=== PATIENT | male | born 1955 | race Caucasian/White ===

== ENCOUNTER 2021-09-06 08:15 | Outpatient (RCR) | payer OTHER, SELFPAY ==
[2021-08-30 08:21] VITALS: BP 100/68; PULSE 101; RESP 18; TEMP 35.9; BMI 33.9
--- NOTE | 2021-08-30 10:09 | PCM.WC.HP ---
History of Present Illness Date of Service: 08/30/21 Chief Complaint: Follow-up on surgical wound lower abdomen Follow-up on surgical wound lower Midabdomen History of Wound: 66-year-old white male, had a colonoscopy done in late summer was found to have low pulse ox while performing the procedure. 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 Patient was sent to [facility] and basically told there was nothing they could do for him and that he was pretty well going to . His daughters were upset and wanted to get a second opinion and call the [facility]. Patient was transferred down to [facility] and they perform surgery on him and remove the sarcoma in its totality and basically the patient does not need chemo. 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 He was admitted for with chest tubes and had been there for quite a while he still has this nonhealing wound in the lower abdomen that he states was a drain from his original surgery. He then went to [place] [facility] and they only want to see him every 1 to 3 months and told him just to pack it with new gauze. They did not like that so they decided to change facilities and that is how he was sent to us. 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 ROLLING MACHINE OPERATOR-C) Pleural effusion, chylous Renal insufficiency S/p nephrectomy Sarcoma Home Medications acetaminophen [Tylenol Ex Str Arthritis Pain] 1,000 mg PO BID 08/30/21 [History Last Taken Unknown] amlodipine 5 mg PO DAILY 08/30/21 [History Last Taken Unknown] apixaban [Eliquis] 5 mg PO BID 08/30/21 [History Last Taken Unknown] cholecalciferol (vitamin D3) [Vitamin D3] 50 mcg PO DAILY 08/30/21 [History Last Taken Unknown] [id number] [Multivitamin 50 Plus] 1 tab PO DAILY 08/30/21 [History Last Taken Unknown] prednisone 5 mg PO BID 08/30/21 [History Last Taken Unknown] tamsulosin 0.4 mg PO DAILY 08/30/21 [History Last Taken Unknown] Allergy/AdvReac Type Severity Reaction Status Date / Time No Known Allergies Allergy Verified 08/30/21 08:35 Social History Smoking Status: Never smoker ROS Integumentary Integumentary: Reports wounds and other Details: Nonhealing surgical wound from previous drain Vital Signs Vital Signs Vital Signs: 08/30/21 08:21 Temperature 96.7 F L Temperature Source Temporal Pulse Rate 101 H Respiratory Rate 18 Blood Pressure 100/68 Blood Pressure Mean 78 Blood Pressure Source Monitor Blood Pressure Position Sitting Blood Pressure Location Left Arm Oxygen Delivery Method Room Air Weight Weight: 223 lb Body Mass Index (BMI) 33.9 Physical Exam Const oriented x3 General Appearance: cooperative Exam Limitations: no limitations HEENT normocephalic Head and Scalp: normal to inspection Face and Sinus: normal facial exam Nose: external nose normal General Ear: hearing grossly impaired External Ear: external ears normal Mouth: oral and palatal mucosa normal Eyes PERRL General Eye: normal appearance of both eyes Neck full ROM General: normal visual inspection Resp normal respiratory effort Effort and Inspection: able to speak in complete sentences Auscultation: clear to auscultation bilaterally Cardio regular rate and regular rhythm Palpation: normal PMI Rate: regular rate Rhythm: regular rhythm GI Auscultation: normoactive bowel sounds Palpation: soft and no hepatosplenomegaly external exam normal Back/Spine Cervical Spine: cervical ROM normal Thoracic Spine / Upper Back: normal to inspection Lumbar Spine / Lower Back: normal to inspection Extremity normal to inspection General Extremity: normal exam except as noted Skin no rashes or lesions noted Wounds: wounds noted Wound Narrative: Small hole base of healed suture line from a previous drain that goes a couple inches into abdomen. Neuro oriented x3 Psych Appearance: grossly normal Speech: normal speech Thought Content: normal thought content Judgement: judgement good Debridement Note Debridement Note Wound debrided: Surgical wound mid abdomen Anesthesia Used: 5% Lidocaine Gel Depth: Down to and including healthy tissue Percentage of wound debrided: 100 Instrument Used: 3mm curette Severity: Fat Layer Exposed Amount of bleeding with debridement: Mild Bleeding Controlled with: Compression and gauze Post-Debridement Measurements and Additional Note: Post-Debridement Measurements/Treatment WC - Nurse 1 - General Ulcer Assessment Start: 08/30/21 08:21 Freq: Status: Active Protocol: DELORIS Activity Type Activity Date Activity User E-Sign Co-Sign Detail Recorded Client Recorded Date Recorded By Document 08/30/21 08:21 [facility] [id number] 08/30/21 08:30 [facility] 08/30/21 08:21 WC - Today's Visit Information Type of service Initial Visit Arrival Mode Ambulatory Transfer Assistance None Accompanied by Patient Identification Verified (Name & Yes ) Height and Weight Height 5 ft 8 in Weight 223 lb Weight in Pounds 223.0 lbs Weight Measurement Method Estimated by Patient Body Mass Index (BMI) 33.9 BMI Classification Obese BSA - Bruce 2.14 Vital Signs Temperature (97.8 F-99.1 F) 96.7 F L Temperature Source Temporal Pulse Rate (60-100) 101 H Pulse Location Monitor Respiratory Rate (12-18) 18 Respiratory rate source Observation Oxygen Delivery Method Room Air Blood Pressure (90/60-120/80) 100/68 Blood Pressure Mean 78 Source Monitor Position Sitting Blood Pressure Location Left Arm History Since Last Visit- (Skip if this is Patient's initial visit) Left Footwear Regular Shoe Right Footwear Regular Shoe Pain Scale: 0-10 Numeric Is Patient Pain Free? Yes Communication Assessment Preferred language Macedonian Release And Technical Records Clerk Required No Able to Read Yes Able to Write Yes Communication Tools None Right Hearing Abillity Normal Left Hearing Abillity Normal Visual Assistive Devices Glasses Teaching Assessment Preferences Verbal,Written, Audio/Visual, Demonstration Barriers to Learning None Readiness To Learn Excellent Willingness to Engage in Self Management High Activies Readiness to Engage in Self Management High Activities Anxiety Level Calm Cooperation Cooperative Perception Coherent Interest in Health Problem Asks Questions Education Importance Acknowledges Need Does Patient Smoke tobacco or other No substances Smoking Status Never smoker Is Patient Diabetic No Functional Assessment Recent Decline in Ability to Perform Denies Any Declines 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 Cultural/Hoahaoism Needs that may affect No Treatment Plan Teaching: Wound Center *Welcome to the Wound Center -Person Taught Patient, Significant Other -Teaching Method Discussion -Response to teaching Verbalize understanding Welcome to the Wound Care Center Macedonian - Nurse 1 - General Ulcer Measurement Start: 08/30/21 08:21 Freq: Status: Active Protocol: Activity Type Activity Date Activity User E-Sign Co-Sign Detail Recorded Client Recorded Date Recorded By Document 08/30/21 08:21 [facility] [id number] 08/30/21 08:30 [facility] 08/30/21 08:21 Wound Center Nurse 1 #1- LOWER ABDOMEN MIDLINE -Combined with other wound No -Current Size (cm) - Length 0.3 -Current Size (cm) - Width 0.2 -Current Size (cm) - Depth 3.3 -Total Square Cm 0.06 -Date of Last Picture (Recall this 08/30/21 field) -Photo Taken Yes -Epithelialization None Present -Tunneling No -Undermining/Tunneling No -Circular Undermining No -Exudate Amt Large -Exudate Type Serosanguineous -Wound Margin Distinct, Outline Attached -Granulation Amt Large (67-100%) -Granulation Quality Red -Slough/Fibrin No -Necrosis Amt None Present (0 %) -Texture (Anaid-wound Skin Appearance) Assessed, Scarring -Moisture (Anaid-wound Skin Appearance) Assessed -Color (Anaid-wound Skin Appearance) Assessed -Temperature (Anaid-wound Skin No Abnormality Appearance) (Pt Warm) -Tenderness on Palpation (Anaid-wound No Skin Appearance) -Ulcer Cleansing Soap and Water -Foul Odor after Cleansing No -Anesthetic Used 4% Lidocaine Solution WC - Nurse 2 - General Ulcer CM Notes Start: 08/30/21 08:21 Freq: Status: Active Protocol: Activity Type Activity Date Activity User E-Sign Co-Sign Detail Recorded Client Recorded Date Recorded By Document 08/30/21 08:48 MW [id number] 08/30/21 09:01 MW 08/30/21 08:48 Wound Center Nurse 2 -Time 08:48 -Correct Patient Yes -Correct Side, Site, Position Yes -Correct Procedure Yes -Procedure Performed Yes -Type of Procedure Debridement -Clinical Debridement Subcutaneous -Tissue Removed Subcutaneous -Post Debridement (cm) - Length 0.3 -Post Debridement (cm) - Width 0.5 -Post Debridement (cm) - Depth 3.5 -Total Square (Post) (cm) 0.15 -Area of Debridement (cm) - Length 0.3 -Area of Debridement (cm) - Width 0.5 -Total Square (Area) (cm) 0.15 -Tunneling No -Undermining/Tunneling No -Circular Undermining No -Wound/Ulcer Outcome Not Healed -Ulcer Cleansing Rinsed/ Irrigated with Saline -Foul Odor after Cleansing No -Bioengineered Tissue No -Bleeding Controlled with Pressure -Offloading No -Treatment Response Procedure Tolerated Well -Debridement - Subq, 1st 20sq cm Yes Pain Scale: 0-10 Numeric Is Patient Pain Free? Yes WC - Nurse 3 - General Ulcer D/C NN Start: 08/30/21 08:21 Freq: Status: Active Protocol: Activity Type Activity Date Activity User E-Sign Co-Sign Detail Recorded Client Recorded Date Recorded By Document 08/30/21 09:01 MW [id number] 08/30/21 09:02 MW 08/30/21 09:01 Wound Care Nurse 3 #1- LOWER ABDOMEN MIDLINE -Ulcer Cleansing Rinsed/ Irrigated with Saline -Foul Odor after Cleansing No -Negative Pressure Wound Therapy N/A -Primary Dressing Applied Aquacel Extra, Mepilex Border -Aquacel Extra 2 -Mepilex Border 2 Treatment Response Procedure Tolerated Well Pain Scale: 0-10 Numeric Is Patient Pain Free? Yes Teaching: Wound Center Dressing Your Wound -Person Taught Patient,Family -Teaching Method Discussion -Response to teaching Verbalize understanding WC - Visit Discharge Discharge Condition Stable Ambulatory Status Ambulatory Transportation Private Auto Accompanied by Medication Reconcilliation completed & No provided to patient/care provider Clinical Summary of Care Provided Yes Assessment/Plan Assessment/Plan (1) Nonhealing surgical wound: CODE(S): T81.89XA - Other complications of procedures, not elsewhere classified, initial encounter QUALIFIERS: Encounter type: initial encounter Qualified Code(s): T81.89XA - Other complications of procedures, not elsewhere classified, initial encounter PLAN: Wash the area with antibacterial soap and pack with Aquacel extra and a 5/8 inch strip. Leave a tail. Cover with foam dressing every day. Follow-up 1 week (2) Renal insufficiency: CODE(S): N28.9 - Disorder of kidney and ureter, unspecified
--- NOTE | 2021-09-04 09:03 | WC ---
Patient called this am and left a message that he started the Augmentin on Saturday night that was prescribed by Meghann. He had his doses to over the weekend and developed a rash to arms and legs and started feeling difficulty swallowing. He stopped taking the med this am and said he already feels better. A message has been sent to Meghann regarding this matter and called the patient to confirm not to take another dose and will call him back once I hear from Meghann. Patient verbalized understanding.
--- NOTE | 2021-09-05 14:50 | WC ---
Spoke to Meghann Almanzar NP concerning patient c/o rash from Augmentin. Patient stopped Augmentin yesterday. New order received for Bactrim DS one tablet by mouth twice daily for 14 days. Called into [facility] in [facility]. Patient notified. Voiced understanding.
[2021-09-06 08:10] VITALS: BP 149/85; PULSE 88; TEMP 35.4; BMI 33.9
--- NOTE | 2021-09-12 14:12 | WC ---
Received a call from patient this AM. Stated his changed his abdominal dressing last night and they couldn't remove all of the Aquacel extra packing out because it tore as they were pulling it out of the wound. Patient stated they just covered it with a dry dressing but did not pack it with any more Aquacel extra. Patient is scheduled to see Meghann ROSS tomorrow at wound center. Meghann notified and will assess wound tomorrow at appointment.
== END 2021-09-11 23:59 ==
LOC: WC 08:15
PROVIDERS: PCP Family Medicine; Visit Provider Nurse Practitioner
DX: T81.89XD Other complications of procedures, not elsewhere classified, subsequent encounter (principal); S31.109D Unspecified open wound of abdominal wall, unspecified quadrant without penetration into peritoneal cavity, subsequent encounter; N28.9 Disorder of kidney and ureter, unspecified; Z79.82 Long term (current) use of aspirin; Z79.52 Long term (current) use of systemic steroids; Z79.899 Other long term (current) drug therapy; Z90.5 Acquired absence of kidney
CPT/HCPCS: 11042; 87070; 87075; 87077; 87186; 87205; 99203; G0463

== ENCOUNTER 2021-10-04 08:30 | Outpatient (RCR) | payer OTHER, SELFPAY ==
[2021-09-12 00:48] VITALS: BP 149/85; PULSE 88; RESP 18; TEMP 35.4; BMI 33.9
[2021-09-13 08:24] VITALS: BP 121/75; PULSE 106; TEMP 36.1; BMI 33.9
--- NOTE | 2021-09-13 09:35 | PN.PCM_ITS ---
History of Present Illness Date of Service: 09/13/21 Chief Complaint: Follow-up on surgical wound lower abdomen Follow-up on surgical wound lower Midabdomen History of Wound: 66-year-old white male, had a colonoscopy done in late summer was found to have low pulse ox while performing the procedure. 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 Patient was sent to [facility] and basically told there was nothing they could do for him and that he was pretty well going to . His daughters were upset and wanted to get a second opinion and call the [facility]. Patient was transferred down to [facility] and they perform surgery on him and remove the sarcoma in its totality and basically the patient does not need chemo. 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 He was admitted for with chest tubes and had been there for quite a while he still has this nonhealing wound in the lower abdomen that he states was a drain from his original surgery. He then went to [place] [facility] and they only want to see him every 1 to 3 months and told him just to pack it with new gauze. They did not like that so they decided to change facilities and that is how he was sent to us. Progress of Wound: Irrigated the wound for serous fluid. Measurements are not much better but it is irritated and bleeding well. We will try changing over to half inch iodoform gauze for packing this week. Subjective Subjective Patient complains that the Aquacel roping broke off inside and they kind of panicked but when they start packing it again and it all came out. Objective Data Objective Data Patient denies any pain and the area around the area is nice and nonirritated patient tolerating treatment well. Measurements are much better this week but very irritated and bleeds easily which is to me a good sign. We will try iodoform gauze this week and pack Vital Signs: Vital Signs Temp Pulse Resp BP 96.9 F L 106 H 18 121/75 H 09/13/21 08:24 09/13/21 08:24 09/12/21 00:48 09/13/21 08:24 Weight: 223 lb Body Mass Index (BMI) 33.9 Lab / Micro Data Attestation: I reviewed the patient's lab results. Physical Exam Const oriented x3 General Appearance: cooperative Exam Limitations: no limitations HEENT normocephalic Head and Scalp: normal to inspection Face and Sinus: normal facial exam Nose: external nose normal General Ear: hearing grossly impaired External Ear: external ears normal Mouth: oral and palatal mucosa normal Eyes PERRL General Eye: normal appearance of both eyes Neck full ROM General: normal visual inspection Resp normal respiratory effort Effort and Inspection: able to speak in complete sentences Auscultation: clear to auscultation bilaterally Cardio regular rate and regular rhythm Palpation: normal PMI Rate: regular rate Rhythm: regular rhythm GI Auscultation: normoactive bowel sounds Palpation: soft and no hepatosplenomegaly external exam normal Back/Spine Cervical Spine: cervical ROM normal Thoracic Spine / Upper Back: normal to inspection Lumbar Spine / Lower Back: normal to inspection Extremity normal to inspection General Extremity: normal exam except as noted Skin no rashes or lesions noted Wounds: wounds noted Wound Narrative: Small hole base of healed suture line from a previous drain that goes a couple inches into abdomen. Neuro oriented x3 Psych Appearance: grossly normal Speech: normal speech Thought Content: normal thought content Judgement: judgement good Debridement Note Debridement Note Wound debrided: Abdominal surgical wound nonhealing Type of Debridement: Excisional debridement Anesthesia Used: 5% Lidocaine Gel Depth: Down to and including healthy tissue Percentage of wound debrided: 100 Instrument Used: 3mm curette Tissue Removed: Fibrin Severity: Fat Layer Exposed Amount of bleeding with debridement: Mild Bleeding Controlled with: Compression and gauze Patient tolerated procedure: Patient tolerated procedure well Post-Debridement Measurements and Additional Note: Post-Debridement Measurements/Treatment - Nurse 1 - General Ulcer Assessment Start: 09/13/21 08:23 Freq: Status: Active Protocol: MICHELLE.LOWEXT Activity Type Activity Date Activity User E-Sign Co-Sign Detail Recorded Client Recorded Date Recorded By Document 09/13/21 08:24 DINA [id number] 09/13/21 08:29 DINA 09/13/21 08:24 - Today's Visit Information Type of service 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 Any new allergies or adverse reactions No Had a fall/change in ADL's that may No increase risk of falls Signs or symptoms of abuse and/or No neglect since last visit Have you been in the hospital since your No last visit? Has dressing in place as prescribed Yes Has compression in place as prescribed N/A Has offloadiing in place as prescribed N/A Experienced any changes in pain level or No management Left Footwear Regular Shoe Right Footwear Regular Shoe Pain Scale: 0-10 Numeric Is Patient Pain Free? Yes MICHELLE - Nurse 1 - General Ulcer Measurement Start: 09/13/21 08:23 Freq: Status: Active Protocol: Activity Type Activity Date Activity User E-Sign Co-Sign Detail Recorded Client Recorded Date Recorded By Document 09/13/21 08:24 AK [id number] 09/13/21 08:29 AK 09/13/21 08:24 Wound Center Nurse 1 #1- LOWER ABDOMEN MIDLINE -Combined with other wound No -Current Size (cm) - Length 0.4 -Current Size (cm) - Width 0.4 -Current Size (cm) - Depth 3.5 -Total Square Cm 0.16 -Date of Last Picture (Recall this 09/13/21 field) -Photo Taken Yes -Tunneling No -Undermining/Tunneling No -Circular Undermining No -Exudate Amt Large -Exudate Type Serosanguineous -Wound Margin Distinct, Outline Attached -Granulation Amt None Present (0 %) -Granulation Quality N/A -Slough/Fibrin No -Necrosis Amt None Present (0 %) -Texture (Anaid-wound Skin Appearance) No Abnormality, Assessed -Moisture (Anaid-wound Skin Appearance) No Abnormality, Assessed -Color (Anaid-wound Skin Appearance) No Abnormality, Assessed -Temperature (Anaid-wound Skin No Abnormality Appearance) (Pt Warm) -Tenderness on Palpation (Anaid-wound No Skin Appearance) -Ulcer Cleansing Rinsed/ Irrigated with Saline -Anesthetic Used 4% Lidocaine Solution WC - Nurse 2 - General Ulcer CM Notes Start: 09/13/21 08:23 Freq: Status: Active Protocol: Activity Type Activity Date Activity User E-Sign Co-Sign Detail Recorded Client Recorded Date Recorded By Document 09/13/21 08:32 MW [id number] 09/13/21 08:39 MW 09/13/21 08:32 Wound Center Nurse 2 -Time 08:33 -Correct Patient Yes -Correct Side, Site, Position Yes -Correct Procedure Yes -Procedure Performed Yes -Type of Procedure Debridement -Clinical Debridement Subcutaneous -Tissue Removed Subcutaneous -Post Debridement (cm) - Length 0.4 -Post Debridement (cm) - Width 0.4 -Post Debridement (cm) - Depth 3.8 -Total Square (Post) (cm) 0.16 -Area of Debridement (cm) - Length 0.4 -Area of Debridement (cm) - Width 0.4 -Total Square (Area) (cm) 0.16 -Tunneling No -Undermining/Tunneling No -Circular Undermining No -Wound/Ulcer Outcome Not Healed -Ulcer Cleansing Rinsed/ Irrigated with Saline -Foul Odor after Cleansing No -Bioengineered Tissue No -Bleeding Controlled with Pressure -Offloading No -Treatment Response Procedure Tolerated Well -Debridement - Subq, 1st 20sq cm Yes Pain Scale: 0-10 Numeric Is Patient Pain Free? Yes - Nurse 3 - General Ulcer D/C NN Start: 09/13/21 08:23 Freq: Status: Active Protocol: Activity Type Activity Date Activity User E-Sign Co-Sign Detail Recorded Client Recorded Date Recorded By Document 09/13/21 08:39 MW [id number] 09/13/21 08:40 MW 09/13/21 08:39 Wound Care Nurse 3 #1- LOWER ABDOMEN MIDLINE -Ulcer Cleansing Rinsed/ Irrigated with Saline -Foul Odor after Cleansing No -Negative Pressure Wound Therapy N/A -Primary Dressing Applied Mepilex Border, Nugauze, Iodoform -Mepilex Border 1 -Nugauze, Iodoform 1/4 2 Treatment Response Procedure Tolerated Well Pain Scale: 0-10 Numeric Is Patient Pain Free? Yes Teaching: Wound Center Dressing Your Wound -Person Taught Patient -Teaching Method Discussion -Response to teaching Verbalize understanding WC - Visit Discharge Discharge Condition Stable Ambulatory Status Ambulatory Transportation Private Auto Accompanied by self Medication Reconcilliation completed & No provided to patient/care provider Clinical Summary of Care Provided Yes Assessment/Plan Assessment/Plan (1) Nonhealing surgical wound: CODE(S): T81.89XA - Other complications of procedures, not elsewhere classified, initial encounter QUALIFIERS: Encounter type: initial encounter Qualified Code(s): T81.89XA - Other complications of procedures, not elsewhere classified, initial encounter PLAN: Wash the area with antibacterial soap and pack with iodoform gauze and half inch strip. Leave a tail. Cover with foam dressing every day. Follow-up 2 week (2) Renal insufficiency: CODE(S): N28.9 - Disorder of kidney and ureter, unspecified
[2021-09-27 08:26] VITALS: BP 128/82; PULSE 85; RESP 18; TEMP 36.3; BMI 33.9
--- NOTE | 2021-09-27 09:20 | PCM.WC.PN ---
History of Present Illness Date of Service: 09/27/21 Chief Complaint: Follow-up on surgical wound lower abdomen Follow-up on surgical wound lower Midabdomen History of Wound: 66-year-old white male, had a colonoscopy done in late summer was found to have low pulse ox while performing the procedure. 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 Patient was sent to [facility] and basically told there was nothing they could do for him and that he was pretty well going to . His daughters were upset and wanted to get a second opinion and call the [facility]. Patient was transferred down to [facility] and they perform surgery on him and remove the sarcoma in its totality and basically the patient does not need chemo. 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 He was admitted for with chest tubes and had been there for quite a while he still has this nonhealing wound in the lower abdomen that he states was a drain from his original surgery. He then went to [place] [facility] and they only want to see him every 1 to 3 months and told him just to pack it with new gauze. They did not like that so they decided to change facilities and that is how he was sent to us. Progress of Wound: Irrigated the wound for more purulent bloody discharge. Measurements are better and when debriding bleeding well. We changed over to half inch iodoform gauze for packing this week. This seems to be working better. Decided to reculture to make sure were not missing anything and we will try getting a wound VAC on this. His next surgical appointment with the [facility] is in November and I would like to know if we can close it with the wound VAC or does he need a surgical procedure. Subjective Subjective Patient's only concern is that his kidney is not working correctly the one he has and he was just in the hospital for 4 days. He and his are only worried about having to wear a wound VAC all the time. Objective Data Objective Data No odor admitted from the wound but will obtain cultures today in order wound VAC to see if that we can get this to close better. Measurements are slightly smaller Vital Signs: Vital Signs Temp Pulse Resp BP 97.3 F L 85 18 128/82 H 09/27/21 08:26 09/27/21 08:26 09/27/21 08:26 09/27/21 08:26 Weight: 223 lb Body Mass Index (BMI) 33.9 Lab / Micro Data Attestation: I reviewed the patient's lab results. Physical Exam Const oriented x3 General Appearance: cooperative Exam Limitations: no limitations HEENT normocephalic Head and Scalp: normal to inspection Face and Sinus: normal facial exam Nose: external nose normal General Ear: hearing grossly impaired External Ear: external ears normal Mouth: oral and palatal mucosa normal Eyes PERRL General Eye: normal appearance of both eyes Neck full ROM General: normal visual inspection Resp normal respiratory effort Effort and Inspection: able to speak in complete sentences Auscultation: clear to auscultation bilaterally Cardio regular rate and regular rhythm Palpation: normal PMI Rate: regular rate Rhythm: regular rhythm GI Auscultation: normoactive bowel sounds Palpation: soft and no hepatosplenomegaly external exam normal Back/Spine Cervical Spine: cervical ROM normal Thoracic Spine / Upper Back: normal to inspection Lumbar Spine / Lower Back: normal to inspection Extremity normal to inspection General Extremity: normal exam except as noted Skin no rashes or lesions noted Wounds: wounds noted Wound Narrative: Small hole base of healed suture line from a previous drain that goes a couple inches into abdomen. Neuro oriented x3 Psych Appearance: grossly normal Speech: normal speech Thought Content: normal thought content Judgement: judgement good Debridement Note Debridement Note Wound debrided: Lower abdominal surgical wound Type of Debridement: Excisional debridement Anesthesia Used: 5% Lidocaine Gel Depth: in the subcutaneous layer Percentage of wound debrided: 100 Instrument Used: 3mm curette Tissue Removed: Fibrin Amount of bleeding with debridement: Mild Bleeding Controlled with: Compression and gauze Patient tolerated procedure: Patient tolerated procedure well Post-Debridement Measurements and Additional Note: Post-Debridement Measurements/Treatment WC - Nurse 1 - General Ulcer Assessment Start: 09/13/21 08:23 Freq: Status: Active Protocol: DELORIS Activity Type Activity Date Activity User E-Sign Co-Sign Detail Recorded Client Recorded Date Recorded By Document 09/13/21 08:24 AK [id number] 09/13/21 08:29 AK Document 09/27/21 08:26 [address] [id number] 09/27/21 08:35 PL 09/13/21 09/27/21 08:24 08:26 - Today's Visit Information Type of service Follow-up Visit Follow-up Visit (Physician/DOLLY OPERATOR (Physician/DOLLY OPERATOR ) ) Arrival Mode Ambulatory Ambulatory Transfer Assistance None Accompanied by Patient Identification Verified (Name & Yes Yes ) Patient Requires Transmission-Based No No Precautions Safety Precautions NA Height and Weight Body Mass Index (BMI) 33.9 33.9 BMI Classification Obese Obese Vital Signs Temperature (97.8 F-99.1 F) 96.9 F L 97.3 F L Temperature Source Temporal Temporal Pulse Rate (60-100) 106 H 85 Pulse Location Monitor Respiratory Rate (12-18) 18 Blood Pressure (90/60-120/80) 121/75 H 128/82 H Blood Pressure Mean (mm Hg) 90 97 Source Monitor History Since Last Visit- (Skip if this is Patient's initial visit) Have you changed medications since your No Yes last visit? Any new allergies or adverse reactions No No Had a fall/change in ADL's that may No No increase risk of falls Signs or symptoms of abuse and/or No No neglect since last visit Have you been in the hospital since your No No last visit? Has dressing in place as prescribed Yes Yes Has compression in place as prescribed N/A N/A Has offloadiing in place as prescribed N/A N/A Experienced any changes in pain level or No No management Left Footwear Regular Shoe Right Footwear Regular Shoe Pain Scale: 0-10 Numeric Is Patient Pain Free? Yes Yes - Nurse 1 - General Ulcer Measurement Start: 09/13/21 08:23 Freq: Status: Active Protocol: Activity Type Activity Date Activity User E-Sign Co-Sign Detail Recorded Client Recorded Date Recorded By Document 09/13/21 08:24 AK [id number] 09/13/21 08:29 AK Document 09/27/21 08:[address] PL [id number] 09/27/21 08:35 PL 09/13/21 09/27/21 08:24 08:26 Wound Center Nurse 1 #1- LOWER ABDOMEN MIDLINE -Combined with other wound No -Current Size (cm) - Length 0.4 0.3 -Current Size (cm) - Width 0.4 0.3 -Current Size (cm) - Depth 3.5 3.5 -Total Square Cm 0.16 0.09 -Date of Last Picture (Recall this 09/13/21 field) -Photo Taken Yes No -Epithelialization None Present -Tunneling No No -Undermining/Tunneling No No -Circular Undermining No No -Classification - Thickness Full Thickness without Exposed Support Structure -Exudate Amt Large Large -Exudate Type Serosanguineous Serous -Wound Margin Distinct, Outline Attached -Granulation Amt None Present (0 None Present (0 %) %) -Granulation Quality N/A -Slough/Fibrin No -Necrosis Amt None Present (0 None Present (0 %) %) -Texture (Anaid-wound Skin Appearance) No Abnormality, Assessed -Moisture (Anaid-wound Skin Appearance) No Abnormality, Assessed -Color (Anaid-wound Skin Appearance) No Abnormality, Assessed -Temperature (Anaid-wound Skin No Abnormality Appearance) (Pt Warm) -Tenderness on Palpation (Anaid-wound No Skin Appearance) -Ulcer Cleansing Rinsed/ Irrigated with Saline -Anesthetic Used 4% Lidocaine Solution WC - Nurse 2 - General Ulcer CM Notes Start: 09/13/21 08:23 Freq: Status: Active Protocol: Activity Type Activity Date Activity User E-Sign Co-Sign Detail Recorded Client Recorded Date Recorded By Document 09/13/21 08:32 MW [id number] 09/13/21 08:39 MW Document 09/27/21 08:44 MW [id number] 09/27/21 08:53 MW 09/13/21 09/27/21 08:32 08:44 Wound Center Nurse 2 #1- LOWER ABDOMEN MIDLINE -Time 08:33 08:45 -Correct Patient Yes Yes -Correct Side, Site, Position Yes Yes -Correct Procedure Yes Yes -Procedure Performed Yes Yes -Type of Procedure Debridement Debridement -Clinical Debridement Subcutaneous Subcutaneous -Tissue Removed Subcutaneous Subcutaneous -Post Debridement (cm) - Length 0.4 0.3 -Post Debridement (cm) - Width 0.4 0.3 -Post Debridement (cm) - Depth 3.8 3.5 -Total Square (Post) (cm) 0.16 0.09 -Area of Debridement (cm) - Length 0.4 0.3 -Area of Debridement (cm) - Width 0.4 0.3 -Total Square (Area) (cm) 0.16 0.09 -Tunneling No No -Undermining/Tunneling No No -Circular Undermining No No -Wound/Ulcer Outcome Not Healed Not Healed -Ulcer Cleansing Rinsed/ Rinsed/ Irrigated with Irrigated with Saline Saline -Foul Odor after Cleansing No No -Bioengineered Tissue No No -Bleeding Controlled with Pressure Pressure -Offloading No No -Treatment Response Procedure Procedure Tolerated Well Tolerated Well -Debridement - Subq, 1st 20sq cm Yes Yes Pain Scale: 0-10 Numeric Is Patient Pain Free? Yes Yes WC - Nurse 3 - General Ulcer D/C NN Start: 09/13/21 08:23 Freq: Status: Active Protocol: Activity Type Activity Date Activity User E-Sign Co-Sign Detail Recorded Client Recorded Date Recorded By Document 09/13/21 08:39 MW [id number] 09/13/21 08:40 MW Document 09/27/21 09:[address] [id number] 09/27/21 09:05 PL 09/13/21 09/27/21 08:39 09:02 Wound Care Nurse 3 #1- LOWER ABDOMEN MIDLINE -Ulcer Cleansing Rinsed/ Rinsed/ Irrigated with Irrigated with Saline Saline -Foul Odor after Cleansing No No -Negative Pressure Wound Therapy N/A -Primary Dressing Applied Mepilex Border, Mepilex Border Nugauze, Iodoform -Other Dressing 1/2 Iodoform -Mepilex Border 1 1 -Nugauze, Iodoform 1/4 2 Treatment Response Procedure Tolerated Well Pain Scale: 0-10 Numeric Is Patient Pain Free? Yes Yes Teaching: Wound Center Dressing Your Wound -Person Taught Patient -Teaching Method Discussion -Response to teaching Verbalize understanding WC - Visit Discharge Discharge Condition Stable Stable Ambulatory Status Ambulatory Ambulatory Transportation Private Auto Private Auto Accompanied by self Medication Reconcilliation completed & No provided to patient/care provider Clinical Summary of Care Provided Yes Assessment/Plan Assessment/Plan (1) Nonhealing surgical wound: CODE(S): T81.89XA - Other complications of procedures, not elsewhere classified, initial encounter QUALIFIERS: Encounter type: initial encounter Qualified Code(s): T81.89XA - Other complications of procedures, not elsewhere classified, initial encounter PLAN: Wash the area with antibacterial soap and pack with iodoform gauze and half inch strip. Leave a tail. Cover with foam dressing every day. Follow-up 1 week We'll also order wound VAC patient is to plug-in and bring it with his dressing changes to the next appointment next week. (2) Renal insufficiency: CODE(S): N28.9 - Disorder of kidney and ureter, unspecified
[2021-10-04 08:34] VITALS: BP 139/71; PULSE 82; RESP 16; TEMP 35.9; BMI 33.9
--- NOTE | 2021-10-04 09:10 | PN.PCM_ITS ---
History of Present Illness Date of Service: 10/04/21 Chief Complaint: Follow-up on surgical wound lower abdomen Follow-up on surgical wound lower Midabdomen History of Wound: 66-year-old white male, had a colonoscopy done in late summer was found to have low pulse ox while performing the procedure. 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 Patient was sent to [facility] and basically told there was nothing they could do for him and that he was pretty well going to . His daughters were upset and wanted to get a second opinion and call the [facility]. Patient was transferred down to [facility] and they perform surgery on him and remove the sarcoma in its totality and basically the patient does not need chemo. 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 He was admitted for with chest tubes and had been there for quite a while he still has this nonhealing wound in the lower abdomen that he states was a drain from his original surgery. He then went to [place] wound center and they only want to see him every 1 to 3 months and told him just to pack it with new gauze. They did not like that so they decided to change facilities and that is how he was sent to us. Progress of Wound: Irrigated the wound for more purulent bloody discharge. Measurements are better and when debriding bleeding well. We changed over to half inch iodoform gauze for packing this week. This seems to be working better. Cultures came back normal darrell from the gut. Put a hold on the wound VAC his insurance is changing to Medicare and we will try wound VAC under Medicare. I think patient was reluctant to use the wound VAC thinking that it was going to be very traumatic like when he had surgery but we reassured him that if we continue packing it will never close. His next surgical appointment with the [facility] is in November and I would like to know if we can close it with the wound VAC or does he need a surgical procedure. Subjective Subjective Patient was just more concerned about his insurance changing and if we could hold on any new procedures we will have him wait 2 weeks in between just to cut back on some of the finances. Objective Data Objective Data The wound is still the same size and depth and still drains purulent thick bloody drainage. As stated above we will hold on wound VAC till insurance changes Vital Signs: Vital Signs Temp Pulse Resp BP 96.6 F L 82 16 139/71 H 10/04/21 08:34 10/04/21 08:34 10/04/21 08:34 10/04/21 08:34 Oxygen Delivery Method Room Air Weight: 223 lb Body Mass Index (BMI) 33.9 Lab / Micro Data Attestation: I reviewed the patient's lab results. Micro: Microbiology 09/27/21 08:45 Wound - Other Gram Stain - Final 09/27/21 08:45 Wound - Other Wound Culture - Final Corynebacterium striatum 09/27/21 08:45 Wound - Other Anaerobic Culture - Final No anaerobic bacteria isolated. Physical Exam Const oriented x3 General Appearance: cooperative Exam Limitations: no limitations HEENT normocephalic Head and Scalp: normal to inspection Face and Sinus: normal facial exam Nose: external nose normal General Ear: hearing grossly impaired External Ear: external ears normal Mouth: oral and palatal mucosa normal Eyes PERRL General Eye: normal appearance of both eyes Neck full ROM General: normal visual inspection Resp normal respiratory effort Effort and Inspection: able to speak in complete sentences Auscultation: clear to auscultation bilaterally Cardio regular rate and regular rhythm Palpation: normal PMI Rate: regular rate Rhythm: regular rhythm GI Auscultation: normoactive bowel sounds Palpation: soft and no hepatosplenomegaly external exam normal Back/Spine Cervical Spine: cervical ROM normal Thoracic Spine / Upper Back: normal to inspection Lumbar Spine / Lower Back: normal to inspection Extremity normal to inspection General Extremity: normal exam except as noted Skin no rashes or lesions noted Wounds: wounds noted Wound Narrative: Small hole base of healed suture line from a previous drain that goes a couple inches into abdomen. Neuro oriented x3 Psych Appearance: grossly normal Speech: normal speech Thought Content: normal thought content Judgement: judgement good Debridement Note Debridement Note Wound debrided: Abdominal surgical wound nonhealing Type of Debridement: Excisional debridement Anesthesia Used: 5% Lidocaine Gel Depth: Down to and including healthy tissue Percentage of wound debrided: 100 Instrument Used: 3mm curette Tissue Removed: Fibrin Severity: Fat Layer Exposed Amount of bleeding with debridement: Mild Bleeding Controlled with: Compression and gauze Patient tolerated procedure: Patient tolerated procedure well Post-Debridement Measurements and Additional Note: Post-Debridement Measurements/Treatment WC - Nurse 1 - General Ulcer Assessment Start: 09/13/21 08:23 Freq: Status: Active Protocol: DELORIS Activity Type Activity Date Activity User E-Sign Co-Sign Detail Recorded Client Recorded Date Recorded By Document 09/13/21 08:24 AK [id number] 09/13/21 08:29 AK Document 09/27/21 08:26 PL [id number] 09/27/21 08:35 PL Document 10/04/21 08:34 BMF [id number] 10/04/21 08:39 BMF 09/13/21 09/27/21 10/04/21 08:24 08:26 08:34 WC - Today's Visit Information Type of service Follow-up Visit Follow-up Visit Follow-up Visit (Physician/CONSTRUCTION AREA MANAGER (Physician/CONSTRUCTION AREA MANAGER (Physician/CONSTRUCTION AREA MANAGER ) ) ) Arrival Mode Ambulatory Ambulatory Ambulatory Transfer Assistance None None Accompanied by Patient Identification Verified (Name & Yes Yes Yes ) Patient Requires Transmission-Based No No Precautions Safety Precautions NA Height and Weight Body Mass Index (BMI) 33.9 33.9 33.9 BMI Classification Obese Obese Obese Vital Signs Temperature (97.8 F-99.1 F) 96.9 F L 97.3 F L 96.6 F L Temperature Source Temporal Temporal Temporal Pulse Rate (60-100) 106 H 85 82 Pulse Location Monitor Monitor Respiratory Rate (12-18) 18 16 Respiratory rate source Observation Oxygen Delivery Method Room Air Blood Pressure (90/60-120/80) 121/75 H 128/82 H 139/71 H Blood Pressure Mean (mm Hg) 90 97 93 Source Monitor Monitor Position Sitting Blood Pressure Location Right Arm History Since Last Visit- (Skip if this is Patient's initial visit) Have you changed medications since your No Yes No last visit? Any new allergies or adverse reactions No No No Had a fall/change in ADL's that may No No No increase risk of falls Signs or symptoms of abuse and/or No No No neglect since last visit Have you been in the hospital since your No No No last visit? Has dressing in place as prescribed Yes Yes Yes Has compression in place as prescribed N/A N/A N/A Has offloadiing in place as prescribed N/A N/A N/A Experienced any changes in pain level or No No No management Left Footwear Regular Shoe Regular Shoe Right Footwear Regular Shoe Regular Shoe Pain Scale: 0-10 Numeric Is Patient Pain Free? Yes Yes Yes WC - Nurse 1 - General Ulcer Measurement Start: 09/13/21 08:23 Freq: Status: Active Protocol: Activity Type Activity Date Activity User E-Sign Co-Sign Detail Recorded Client Recorded Date Recorded By Document 09/13/21 08:24 AK [id number] 09/13/21 08:29 AK Document 09/27/21 08:26 PL [id number] 09/27/21 08:35 PL Document 10/04/21 08:34 BMF [id number] 10/04/21 08:39 BMF 09/13/21 09/27/21 10/04/21 08:24 08:26 08:34 Wound Center Nurse 1 #1- LOWER ABDOMEN MIDLINE -Combined with other wound No No -Current Size (cm) - Length 0.4 0.3 0.3 -Current Size (cm) - Width 0.4 0.3 0.3 -Current Size (cm) - Depth 3.5 3.5 3 -Total Square Cm 0.16 0.09 0.09 -Date of Last Picture (Recall this 09/13/21 10/04/21 field) -Photo Taken Yes No Yes -Epithelialization None Present None Present -Tunneling No No -Undermining/Tunneling No No -Circular Undermining No No -Classification - Thickness Full Thickness without Exposed Support Structure -Exudate Amt Large Large Large -Exudate Type Serosanguineous Serous Serosanguineous -Wound Margin Distinct, Distinct, Outline Outline Attached Attached -Granulation Amt None Present (0 None Present (0 Large (67-100%) %) %) -Granulation Quality N/A Red -Slough/Fibrin No No -Necrosis Amt None Present (0 None Present (0 None Present (0 %) %) %) -Texture (Anaid-wound Skin Appearance) No Abnormality, Assessed, Assessed Scarring -Moisture (Anaid-wound Skin Appearance) No Abnormality, Assessed Assessed -Color (Anaid-wound Skin Appearance) No Abnormality, Assessed Assessed -Temperature (Anaid-wound Skin No Abnormality No Abnormality Appearance) (Pt Warm) (Pt Warm) -Tenderness on Palpation (Anaid-wound No No Skin Appearance) -Ulcer Cleansing Rinsed/ Soap and Water Irrigated with Saline -Foul Odor after Cleansing No -Anesthetic Used 4% Lidocaine 4% Lidocaine Solution Solution WC - Nurse 2 - General Ulcer CM Notes Start: 09/13/21 08:23 Freq: Status: Active Protocol: Activity Type Activity Date Activity User E-Sign Co-Sign Detail Recorded Client Recorded Date Recorded By Document 09/13/21 08:32 MW [id number] 09/13/21 08:39 MW Document 09/27/21 08:44 MW [id number] 09/27/21 08:53 MW Document 10/04/21 08:52 MW [id number] 10/04/21 08:55 MW 09/13/21 09/27/21 10/04/21 08:32 08:44 08:52 Wound Center Nurse 2 #1- LOWER ABDOMEN MIDLINE -Time 08:33 08:45 08:53 -Correct Patient Yes Yes Yes -Correct Side, Site, Position Yes Yes Yes -Correct Procedure Yes Yes Yes -Procedure Performed Yes Yes Yes -Type of Procedure Debridement Debridement Debridement -Clinical Debridement Subcutaneous Subcutaneous Subcutaneous -Tissue Removed Subcutaneous Subcutaneous Subcutaneous -Post Debridement (cm) - Length 0.4 0.3 0.3 -Post Debridement (cm) - Width 0.4 0.3 0.3 -Post Debridement (cm) - Depth 3.8 3.5 3.5 -Total Square (Post) (cm) 0.16 0.09 0.09 -Area of Debridement (cm) - Length 0.4 0.3 0.3 -Area of Debridement (cm) - Width 0.4 0.3 0.3 -Total Square (Area) (cm) 0.16 0.09 0.09 -Tunneling No No No -Undermining/Tunneling No No No -Circular Undermining No No No -Wound/Ulcer Outcome Not Healed Not Healed Not Healed -Ulcer Cleansing Rinsed/ Rinsed/ Rinsed/ Irrigated with Irrigated with Irrigated with Saline Saline Saline -Foul Odor after Cleansing No No No -Bioengineered Tissue No No No -Bleeding Controlled with Pressure Pressure Pressure -Offloading No No No -Treatment Response Procedure Procedure Procedure Tolerated Well Tolerated Well Tolerated Well -Debridement - Subq, 1st 20sq cm Yes Yes Yes Pain Scale: 0-10 Numeric Is Patient Pain Free? Yes Yes Yes WC - Nurse 3 - General Ulcer D/C NN Start: 09/13/21 08:23 Freq: Status: Active Protocol: Activity Type Activity Date Activity User E-Sign Co-Sign Detail Recorded Client Recorded Date Recorded By Document 09/13/21 08:39 MW [id number] 09/13/21 08:40 MW Document 09/27/21 09:02 [address] [id number] 09/27/21 09:05 PL Document 10/04/21 09:02 BMF [id number] 10/04/21 09:04 BMF 09/13/21 09/27/21 10/04/21 08:39 09:02 09:02 Wound Care Nurse 3 #1- LOWER ABDOMEN MIDLINE -Ulcer Cleansing Rinsed/ Rinsed/ Soap and Water Irrigated with Irrigated with Saline Saline -Foul Odor after Cleansing No No No -Negative Pressure Wound Therapy N/A -Primary Dressing Applied Mepilex Border, Mepilex Border Mepilex Border, Nugauze, Nugauze, Plain Iodoform Iodoform -Other Dressing 1/2 Iodoform -Mepilex Border 1 1 1 -Nugauze, Iodoform 1/4 2 -Nugauze, Plain Iodoform 1/4 1 Treatment Response Procedure Procedure Tolerated Well Tolerated Well Pain Scale: 0-10 Numeric Is Patient Pain Free? Yes Yes Yes Teaching: Wound Center Dressing Your Wound -Person Taught Patient -Teaching Method Discussion -Response to teaching Verbalize understanding WC - Visit Discharge Discharge Condition Stable Stable Stable Ambulatory Status Ambulatory Ambulatory Ambulatory Transportation Private Auto Private Auto Private Auto Accompanied by self Medication Reconcilliation completed & No provided to patient/care provider Clinical Summary of Care Provided Yes Assessment/Plan Assessment/Plan (1) Nonhealing surgical wound: CODE(S): T81.89XA - Other complications of procedures, not elsewhere classified, initial encounter QUALIFIERS: Encounter type: initial encounter Qualified Code(s): T81.89XA - Other complications of procedures, not elsewhere classified, initial encounter PLAN: Wash the area with antibacterial soap and pack with iodoform gauze and half inch strip. Leave a tail. Cover with foam dressing every day. Follow-up 2 week We'll hold on wound VAC patient till patient's insurance changes and go from there Follow-up in 2 weeks (2) Renal insufficiency: CODE(S): N28.9 - Disorder of kidney and ureter, unspecified
== END 2021-10-09 23:59 | disposition home or self-care (01) ==
LOC: WC 08:30
PROVIDERS: PCP Family Medicine; Visit Provider Nurse Practitioner
DX: T81.89XA Other complications of procedures, not elsewhere classified, initial encounter (principal); N28.9 Disorder of kidney and ureter, unspecified; Z90.5 Acquired absence of kidney
CPT/HCPCS: 11042; 87070; 87075; 87205

== ENCOUNTER 2021-11-01 08:30 | Outpatient (RCR) | payer OTHER, SELFPAY ==
[2021-10-10 00:37] VITALS: BP 139/71; PULSE 82; RESP 16; TEMP 35.9; BMI 33.9
[2021-10-18 08:29] VITALS: BP 141/72; PULSE 82; TEMP 36; BMI 33.9
--- NOTE | 2021-10-18 08:59 | PCM.WC.PN ---
History of Present Illness Date of Service: 10/18/21 Chief Complaint: Follow-up on surgical wound lower abdomen Follow-up on surgical wound lower Midabdomen History of Wound: 66-year-old white male, had a colonoscopy done in late summer was found to have low pulse ox while performing the procedure. 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 Patient was sent to [facility] and basically told there was nothing they could do for him and that he was pretty well going to . His daughters were upset and wanted to get a second opinion and call the [facility]. Patient was transferred down to [facility] and they perform surgery on him and remove the sarcoma in its totality and basically the patient does not need chemo. 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 He was admitted for with chest tubes and had been there for quite a while he still has this nonhealing wound in the lower abdomen that he states was a drain from his original surgery. He then went to [place] [facility] and they only want to see him every 1 to 3 months and told him just to pack it with new gauze. They did not like that so they decided to change facilities and that is how he was sent to us. Progress of Wound: Depth is just slightly smaller still gets a bloody discharge tolerating the packing well really want to put him on a wound VAC but there is insurance changing him opening soon. Patient is to notify us so we can start ordering the wound VAC I think that will help close mom. I think he is in another surgical appointment in November is hoping to get this closed up or smaller by then. Subjective Subjective Patient has no concerns at this time wants to hold on the wound VAC till his insurance changes over to Medicare. Objective Data Objective Data Has finished his antibiotics for his gut and continues to do packing. We will switch him over to wound VAC as soon as his insurance changes patient is to notify us Vital Signs: Vital Signs Temp Pulse Resp BP 96.8 F L 82 16 141/72 H 10/18/21 08:29 10/18/21 08:29 10/10/21 00:37 10/18/21 08:29 Weight: 223 lb Body Mass Index (BMI) 33.9 Lab / Micro Data Attestation: I reviewed the patient's lab results. Physical Exam Const oriented x3 General Appearance: cooperative Exam Limitations: no limitations HEENT normocephalic Head and Scalp: normal to inspection Face and Sinus: normal facial exam Nose: external nose normal General Ear: hearing grossly impaired External Ear: external ears normal Mouth: oral and palatal mucosa normal Eyes PERRL General Eye: normal appearance of both eyes Neck full ROM General: normal visual inspection Resp normal respiratory effort Effort and Inspection: able to speak in complete sentences Auscultation: clear to auscultation bilaterally Cardio regular rate and regular rhythm Palpation: normal PMI Rate: regular rate Rhythm: regular rhythm GI Auscultation: normoactive bowel sounds Palpation: soft and no hepatosplenomegaly external exam normal Back/Spine Cervical Spine: cervical ROM normal Thoracic Spine / Upper Back: normal to inspection Lumbar Spine / Lower Back: normal to inspection Extremity normal to inspection General Extremity: normal exam except as noted Skin no rashes or lesions noted Wounds: wounds noted Wound Narrative: Small hole base of healed suture line from a previous drain that goes a couple inches into abdomen. Neuro oriented x3 Psych Appearance: grossly normal Speech: normal speech Thought Content: normal thought content Judgement: judgement good Debridement Note Debridement Note Wound debrided: Lower abdominal wound surgical nonhealing Type of Debridement: Excisional debridement Anesthesia Used: 5% Lidocaine Gel Depth: Down to and including healthy tissue Percentage of wound debrided: 100 Instrument Used: 3mm curette Tissue Removed: Fibrin Severity: Fat Layer Exposed Amount of bleeding with debridement: Mild Bleeding Controlled with: Pressure Patient tolerated procedure: Patient tolerated procedure well Post-Debridement Measurements and Additional Note: Post-Debridement Measurements/Treatment - Nurse 1 - General Ulcer Assessment Start: 10/18/21 08:29 Freq: Status: Active Protocol: [email or web address] Activity Type Activity Date Activity User E-Sign Co-Sign Detail Recorded Client Recorded Date Recorded By Document 10/18/21 08:29 NV [id number] 10/18/21 08:32 DINA 10/18/21 08:29 - Today's Visit Information Type of service Follow-up Visit (Physician/PHYSICIAN RECRUITER ) Arrival Mode Ambulatory Patient Identification Verified (Name & Yes ) Patient Requires Transmission-Based No Precautions Height and Weight Body Mass Index (BMI) 33.9 BMI Classification Obese Vital Signs Temperature (97.8 F-99.1 F) 96.8 F L Temperature Source Temporal Pulse Rate (60-100) 82 Pulse Location Monitor Blood Pressure (90/60-120/80) 141/72 H Blood Pressure Mean (mm Hg) 95 Source Monitor History Since Last Visit- (Skip if this is Patient's initial visit) Have you changed medications since your No last visit? Any new allergies or adverse reactions No Had a fall/change in ADL's that may No increase risk of falls Signs or symptoms of abuse and/or No neglect since last visit Have you been in the hospital since your No last visit? Has dressing in place as prescribed Yes Has compression in place as prescribed N/A Has offloadiing in place as prescribed N/A Experienced any changes in pain level or No management Left Footwear Regular Shoe Right Footwear Regular Shoe Pain Scale: 0-10 Numeric Is Patient Pain Free? Yes MICHELLE - Nurse 1 - General Ulcer Measurement Start: 10/18/21 08:29 Freq: Status: Active Protocol: Activity Type Activity Date Activity User E-Sign Co-Sign Detail Recorded Client Recorded Date Recorded By Document 10/18/21 08:29 NV [id number] 10/18/21 08:32 AK 10/18/21 08:29 Wound Center Nurse 1 #1- LOWER ABDOMEN MIDLINE -Combined with other wound No -Current Size (cm) - Length 0.3 -Current Size (cm) - Width 0.4 -Current Size (cm) - Depth 3.3 -Total Square Cm 0.12 -Photo Taken Yes -Tunneling No -Undermining/Tunneling No -Circular Undermining No -Exudate Amt Large -Exudate Type Serosanguineous -Wound Margin Distinct, Outline Attached -Granulation Quality N/A -Slough/Fibrin No -Necrosis Amt None Present (0 %) -Structure Exposed N/A -Texture (Anaid-wound Skin Appearance) No Abnormality, Assessed -Moisture (Anaid-wound Skin Appearance) No Abnormality, Assessed -Color (Anaid-wound Skin Appearance) No Abnormality, Assessed -Temperature (Anaid-wound Skin No Abnormality Appearance) (Pt Warm) -Tenderness on Palpation (Anaid-wound No Skin Appearance) -Ulcer Cleansing Rinsed/ Irrigated with Saline -Foul Odor after Cleansing No -Anesthetic Used 4% Lidocaine Solution MICHELLE - Nurse 2 - General Ulcer CM Notes Start: 10/18/21 08:29 Freq: Status: Active Protocol: Activity Type Activity Date Activity User E-Sign Co-Sign Detail Recorded Client Recorded Date Recorded By Document 10/18/21 08:38 MW [id number] 10/18/21 08:42 MW 10/18/21 08:38 Wound Center Nurse 2 -Time 08:38 -Correct Patient Yes -Correct Side, Site, Position Yes -Correct Procedure Yes -Procedure Performed Yes -Type of Procedure Debridement -Clinical Debridement Subcutaneous -Tissue Removed Subcutaneous -Post Debridement (cm) - Length 0.4 -Post Debridement (cm) - Width 0.3 -Post Debridement (cm) - Depth 3.4 -Total Square (Post) (cm) 0.12 -Area of Debridement (cm) - Length 0.4 -Area of Debridement (cm) - Width 0.3 -Total Square (Area) (cm) 0.12 -Tunneling No -Undermining/Tunneling No -Circular Undermining No -Wound/Ulcer Outcome Not Healed -Ulcer Cleansing Rinsed/ Irrigated with Saline -Foul Odor after Cleansing No -Bioengineered Tissue No -Bleeding Controlled with Pressure -Offloading No -Treatment Response Procedure Tolerated Well -Debridement - Subq, 1st 20sq cm Yes Pain Scale: 0-10 Numeric Is Patient Pain Free? Yes - Nurse 3 - General Ulcer D/C NN Start: 10/18/21 08:29 Freq: Status: Active Protocol: Activity Type Activity Date Activity User E-Sign Co-Sign Detail Recorded Client Recorded Date Recorded By Document 10/18/21 08:44 MW [id number] 10/18/21 08:45 MW 10/18/21 08:44 Wound Care Nurse 3 #1- LOWER ABDOMEN MIDLINE -Ulcer Cleansing Rinsed/ Irrigated with Saline -Foul Odor after Cleansing No -Negative Pressure Wound Therapy N/A -Primary Dressing Applied Mepilex Border, Nugauze, Iodoform -Mepilex Border 1 -Nugauze, Iodoform 1/4 1 Treatment Response Procedure Tolerated Well Pain Scale: 0-10 Numeric Is Patient Pain Free? Yes Teaching: Wound Center Dressing Your Wound -Person Taught Patient -Teaching Method Discussion -Response to teaching Verbalize understanding WC - Visit Discharge Discharge Condition Stable Ambulatory Status Ambulatory Transportation Private Auto Accompanied by self Medication Reconcilliation completed & No provided to patient/care provider Clinical Summary of Care Provided Yes Assessment/Plan Assessment/Plan (1) Nonhealing surgical wound: CODE(S): T81.89XA - Other complications of procedures, not elsewhere classified, initial encounter QUALIFIERS: Encounter type: initial encounter Qualified Code(s): T81.89XA - Other complications of procedures, not elsewhere classified, initial encounter PLAN: Wash the area with antibacterial soap and pack with iodoform gauze and half inch strip. Leave a tail. Cover with foam dressing every day. Follow-up 2 week We'll hold on wound VAC patient till patient's insurance changes and go from there Follow-up in 2 weeks (2) Renal insufficiency: CODE(S): N28.9 - Disorder of kidney and ureter, unspecified
[2021-11-01 08:25] VITALS: BP 145/79; PULSE 93; TEMP 36.1; BMI 33.9
--- NOTE | 2021-11-01 09:51 | PN.PCM_ITS ---
History of Present Illness Date of Service: 11/01/21 Chief Complaint: Follow-up on surgical wound lower abdomen Follow-up on surgical wound lower Midabdomen History of Wound: 66-year-old white male, had a colonoscopy done in late summer was found to have low pulse ox while performing the procedure. 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 Patient was sent to [facility] and basically told there was nothing they could do for him and that he was pretty well going to . His daughters were upset and wanted to get a second opinion and call the [facility]. Patient was transferred down to [facility] and they perform surgery on him and remove the sarcoma in its totality and basically the patient does not need chemo. 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 He was admitted for with chest tubes and had been there for quite a while he still has this nonhealing wound in the lower abdomen that he states was a drain from his original surgery. He then went to [place] [facility] and they only want to see him every 1 to 3 months and told him just to pack it with new gauze. They did not like that so they decided to change facilities and that is how he was sent to us. Progress of Wound: Depth is just slightly smaller still gets a bloody discharge tolerating the packing well really want to put him on a wound VAC but there is insurance change starting November 10. Patient is to notify us so we can start ordering the wound VAC I think that will help close mom. I think he is in another surgical appointment in November is hoping to get this closed up or smaller by then. Subjective Subjective Patient tolerating treatments has no real concerns Objective Data Objective Data Developing an irritation around the wound from tape. Patient unable to use the absorbent bandages because of expense so is back to using paper tape and has a little bit of a skin reaction. Vital Signs: Vital Signs Temp Pulse Resp BP 97.0 F L 93 16 145/79 H 11/01/21 08:25 11/01/21 08:25 10/10/21 00:37 11/01/21 08:25 Weight: 223 lb Body Mass Index (BMI) 33.9 Physical Exam Const oriented x3 General Appearance: cooperative Exam Limitations: no limitations HEENT normocephalic Head and Scalp: normal to inspection Face and Sinus: normal facial exam Nose: external nose normal General Ear: hearing grossly impaired External Ear: external ears normal Mouth: oral and palatal mucosa normal Eyes PERRL General Eye: normal appearance of both eyes Neck full ROM General: normal visual inspection Resp normal respiratory effort Effort and Inspection: able to speak in complete sentences Auscultation: clear to auscultation bilaterally Cardio regular rate and regular rhythm Palpation: normal PMI Rate: regular rate Rhythm: regular rhythm GI Auscultation: normoactive bowel sounds Palpation: soft and no hepatosplenomegaly external exam normal Back/Spine Cervical Spine: cervical ROM normal Thoracic Spine / Upper Back: normal to inspection Lumbar Spine / Lower Back: normal to inspection Extremity normal to inspection General Extremity: normal exam except as noted Skin no rashes or lesions noted Neuro oriented x3 Psych Appearance: grossly normal Speech: normal speech Thought Content: normal thought content Judgement: judgement good Debridement Note Debridement Note Wound debrided: Lower abdominal surgical wound Type of Debridement: Excisional debridement Anesthesia Used: 5% Lidocaine Gel Depth: in the subcutaneous layer Percentage of wound debrided: 100 Instrument Used: 3mm curette Tissue Removed: Fibrin blood Severity: Fat Layer Exposed Amount of bleeding with debridement: Moderate Bleeding Controlled with: Compression and gauze Patient tolerated procedure: Patient tolerated procedure well Post-Debridement Measurements and Additional Note: Post-Debridement Measurements/Treatment - Nurse 1 - General Ulcer Assessment Start: 10/18/21 08:29 Freq: Status: Active Protocol: .JOSEE Activity Type Activity Date Activity User E-Sign Co-Sign Detail Recorded Client Recorded Date Recorded By Document 10/18/21 08:29 AK [id number] 10/18/21 08:32 AK Document 11/01/21 08:25 KR [id number] 11/01/21 08:27 KR 10/18/21 11/01/21 08:29 08:25 - Today's Visit Information Type of service Follow-up Visit Follow-up Visit (Physician/JET MECHANIC (Physician/JET MECHANIC ) ) Arrival Mode Ambulatory Ambulatory Patient Identification Verified (Name & Yes Yes ) Patient Requires Transmission-Based No Precautions Height and Weight Body Mass Index (BMI) 33.9 33.9 BMI Classification Obese Obese Vital Signs Temperature (97.8 F-99.1 F) 96.8 F L 97.0 F L Temperature Source Temporal Temporal Pulse Rate (60-100) 82 93 Pulse Location Monitor Monitor Blood Pressure (90/60-120/80) 141/72 H 145/79 H Blood Pressure Mean (mm Hg) 95 101 Source Monitor Monitor Position Sitting Blood Pressure Location Right Arm History Since Last Visit- (Skip if this is Patient's initial visit) Have you changed medications since your No No last visit? Any new allergies or adverse reactions No No Had a fall/change in ADL's that may No No increase risk of falls Signs or symptoms of abuse and/or No No neglect since last visit Have you been in the hospital since your No No last visit? Has dressing in place as prescribed Yes Yes Has compression in place as prescribed N/A N/A Has offloadiing in place as prescribed N/A N/A Experienced any changes in pain level or No No management Left Footwear Regular Shoe Regular Shoe Right Footwear Regular Shoe Regular Shoe Pain Scale: 0-10 Numeric Is Patient Pain Free? Yes Yes WC - Nurse 1 - General Ulcer Measurement Start: 10/18/21 08:29 Freq: Status: Active Protocol: Activity Type Activity Date Activity User E-Sign Co-Sign Detail Recorded Client Recorded Date Recorded By Document 10/18/21 08:29 AK [id number] 10/18/21 08:32 AK Document 11/01/21 08:25 KR [id number] 11/01/21 08:27 KR 10/18/21 11/01/21 08:29 08:25 Wound Center Nurse 1 #1- LOWER ABDOMEN MIDLINE -Combined with other wound No -Current Size (cm) - Length 0.3 0.3 -Current Size (cm) - Width 0.4 0.4 -Current Size (cm) - Depth 3.3 3 -Total Square Cm 0.12 0.12 -Photo Taken Yes -Tunneling No -Undermining/Tunneling No -Circular Undermining No -Exudate Amt Large Medium -Exudate Type Serosanguineous Serosanguineous -Wound Margin Distinct, Distinct, Outline Outline Attached Attached -Granulation Amt Medium (34-66%) -Granulation Quality N/A Red -Slough/Fibrin No -Necrosis Amt None Present (0 Small (1-33%) %) -Necrotic Tissue Type Adherent Slough -Structure Exposed N/A -Texture (Anaid-wound Skin Appearance) No Abnormality, Assessed, Assessed Scarring -Moisture (Anaid-wound Skin Appearance) No Abnormality, No Abnormality, Assessed Assessed -Color (Anaid-wound Skin Appearance) No Abnormality, No Abnormality, Assessed Assessed -Temperature (Anaid-wound Skin No Abnormality No Abnormality Appearance) (Pt Warm) (Pt Warm) -Tenderness on Palpation (Anaid-wound No No Skin Appearance) -Ulcer Cleansing Rinsed/ Rinsed/ Irrigated with Irrigated with Saline Saline -Foul Odor after Cleansing No No -Anesthetic Used 4% Lidocaine 5% Lidocaine Solution Gel WC - Nurse 2 - General Ulcer CM Notes Start: 10/18/21 08:29 Freq: Status: Active Protocol: Activity Type Activity Date Activity User E-Sign Co-Sign Detail Recorded Client Recorded Date Recorded By Document 10/18/21 08:38 MW [id number] 10/18/21 08:42 MW Document 11/01/21 08:49 MW [id number] 11/01/21 08:56 MW 10/18/21 11/01/21 08:38 08:49 Wound Center Nurse 2 #1- LOWER ABDOMEN MIDLINE -Time 08:38 08:49 -Correct Patient Yes Yes -Correct Side, Site, Position Yes Yes -Correct Procedure Yes -Procedure Performed Yes Yes -Type of Procedure Debridement Debridement -Clinical Debridement Subcutaneous Subcutaneous -Tissue Removed Subcutaneous Subcutaneous -Post Debridement (cm) - Length 0.4 0.5 -Post Debridement (cm) - Width 0.3 0.5 -Post Debridement (cm) - Depth 3.4 3.8 -Total Square (Post) (cm) 0.12 0.25 -Area of Debridement (cm) - Length 0.4 0.5 -Area of Debridement (cm) - Width 0.3 0.5 -Total Square (Area) (cm) 0.12 0.25 -Tunneling No No -Undermining/Tunneling No No -Circular Undermining No No -Wound/Ulcer Outcome Not Healed Not Healed -Ulcer Cleansing Rinsed/ Rinsed/ Irrigated with Irrigated with Saline Saline -Foul Odor after Cleansing No No -Bioengineered Tissue No No -Bleeding Controlled with Pressure Pressure -Treatment Response Procedure Procedure Tolerated Well Tolerated Well -Offloading No No -Debridement - Subq, 1st 20sq cm Yes Yes Pain Scale: 0-10 Numeric Is Patient Pain Free? Yes Yes WC - Nurse 3 - General Ulcer D/C NN Start: 10/18/21 08:29 Freq: Status: Active Protocol: Activity Type Activity Date Activity User E-Sign Co-Sign Detail Recorded Client Recorded Date Recorded By Document 10/18/21 08:44 MW [id number] 10/18/21 08:45 MW Document 11/01/21 09:00 AK [id number] 11/01/21 09:01 AK 10/18/21 11/01/21 08:44 09:00 Wound Care Nurse 3 #1- LOWER ABDOMEN MIDLINE -Ulcer Cleansing Rinsed/ Rinsed/ Irrigated with Irrigated with Saline Saline -Foul Odor after Cleansing No No -Negative Pressure Wound Therapy N/A N/A -Primary Dressing Applied Mepilex Border, Nugauze, Nugauze, Iodoform Iodoform -Mepilex Border 1 1 -Nugauze, Iodoform 1/4 1 1 Treatment Response Procedure Tolerated Well Pain Scale: 0-10 Numeric Is Patient Pain Free? Yes Yes Teaching: Wound Center Dressing Your Wound -Person Taught Patient -Teaching Method Discussion -Response to teaching Verbalize understanding WC - Visit Discharge Discharge Condition Stable Stable Ambulatory Status Ambulatory Ambulatory Transportation Private Auto Private Auto Accompanied by self Medication Reconcilliation completed & No Yes provided to patient/care provider Clinical Summary of Care Provided Yes Yes Assessment/Plan Assessment/Plan (1) Nonhealing surgical wound: CODE(S): T81.89XA - Other complications of procedures, not elsewhere classified, initial encounter QUALIFIERS: Encounter type: initial encounter Qualified Code(s): T81.89XA - Other complications of procedures, not elsewhere classified, initial encounter PLAN: Wash the area with antibacterial soap and pack with iodoform gauze and half inch strip. Leave a tail. Cover with foam dressing every day. Follow-up 3 week We'll hold on wound VAC patient till patient's insurance changes and go from there (2) Renal insufficiency: CODE(S): N28.9 - Disorder of kidney and ureter, unspecified
== END 2021-11-09 23:59 | disposition home or self-care (01) ==
LOC: WC 08:30
PROVIDERS: PCP Family Medicine; Visit Provider Nurse Practitioner
DX: T81.89XD Other complications of procedures, not elsewhere classified, subsequent encounter (principal); S31.109D Unspecified open wound of abdominal wall, unspecified quadrant without penetration into peritoneal cavity, subsequent encounter; N28.9 Disorder of kidney and ureter, unspecified; Z79.01 Long term (current) use of anticoagulants; Z79.899 Other long term (current) drug therapy; Z90.5 Acquired absence of kidney; Z85.831 Personal history of malignant neoplasm of soft tissue
CPT/HCPCS: 11042

== ENCOUNTER 2021-12-06 08:30 | Outpatient (RCR) | payer MEDICARE, OTHER, SELFPAY ==
[2021-11-10 00:37] VITALS: BP 145/79; PULSE 93; RESP 16; TEMP 36.1; BMI 33.9
[2021-11-22 08:36] VITALS: BP 131/80; PULSE 91; TEMP 36.2; BMI 33.9
--- NOTE | 2021-11-22 09:20 | PN.PCM_ITS ---
History of Present Illness Date of Service: 11/22/21 Chief Complaint: Follow-up on surgical wound lower abdomen Follow-up on surgical wound lower Midabdomen History of Wound: 66-year-old white male, had a colonoscopy done in late summer was found to have low pulse ox while performing the procedure. 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 Patient was sent to [facility] and basically told there was nothing they could do for him and that he was pretty well going to . His daughters were upset and wanted to get a second opinion and call the [facility]. Patient was transferred down to [facility] and they perform surgery on him and remove the sarcoma in its totality and basically the patient does not need chemo. 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 He was admitted for with chest tubes and had been there for quite a while he still has this nonhealing wound in the lower abdomen that he states was a drain from his original surgery. He then went to [place] [facility] and they only want to see him every 1 to 3 months and told him just to pack it with new gauze. They did not like that so they decided to change facilities and that is how he was sent to us. Progress of Wound: Have not seen patient for a couple of weeks due to he is just packing with iodoform. Depth is better still open smaller opening. Patient finally changed insurance and is started on Medicare. Received his wound VAC and is ready to start today. not sure she can do the dressing changes for the wound VAC will have home health come in and help him with changing the wound VAC weekly. Subjective Subjective Patient has been compliant with iodoform gauze ran out today will need more ordered Objective Data Objective Data Measurements for depth were slightly smaller still get a bloody discharge debrides well irrigated with normal saline tolerated well. We will apply the wound VAC today at 150 mmHg. Patient can have a changed twice weekly. prefers that we get home health to help because she is still working. Vital Signs: Vital Signs Temp Pulse Resp BP 97.1 F L 91 16 131/80 H 11/22/21 08:36 11/22/21 08:36 11/10/21 00:37 04/13/22 08:36 Weight: 223 lb Body Mass Index (BMI) 33.9 Lab / Micro Data Attestation: I reviewed the patient's lab results. Physical Exam Const oriented x3 General Appearance: cooperative Exam Limitations: no limitations Eyes PERRL General Eye: normal appearance of both eyes Resp normal respiratory effort Effort and Inspection: able to speak in complete sentences Auscultation: clear to auscultation bilaterally Cardio regular rate and regular rhythm Palpation: normal PMI Rate: regular rate Rhythm: regular rhythm GI Auscultation: normoactive bowel sounds Palpation: soft and no hepatosplenomegaly external exam normal Extremity normal to inspection General Extremity: normal exam except as noted Skin no wounds Neuro oriented x3 Psych Appearance: grossly normal Speech: normal speech Thought Content: normal thought content Judgement: judgement good Debridement Note Debridement Note Wound debrided: Lower abdominal wound from surgery Type of Debridement: Excisional debridement Anesthesia Used: 5% Lidocaine Gel Depth: in the subcutaneous layer Percentage of wound debrided: 100 Instrument Used: 3mm curette Severity: Fat Layer Exposed Amount of bleeding with debridement: Mild Bleeding Controlled with: Pressure and - (Irrigated with normal saline) Patient tolerated procedure: Patient tolerated procedure well Post-Debridement Measurements and Additional Note: Post-Debridement Measurements/Treatment WC - Nurse 1 - General Ulcer Assessment Start: 11/22/21 08:36 Freq: Status: Active Protocol: DELORIS Activity Type Activity Date Activity User E-Sign Co-Sign Detail Recorded Client Recorded Date Recorded By Document 11/22/21 08:36 DINA [id number] 11/22/21 08:39 DINA 11/22/21 08:36 - Today's Visit Information Type of service Follow-up Visit (Physician/EYEGLASS INSPECTOR ) Arrival Mode Ambulatory Accompanied by Patient Identification Verified (Name & Yes ) Patient Requires Transmission-Based No Precautions Safety Precautions NA Height and Weight Body Mass Index (BMI) 33.9 BMI Classification Obese Vital Signs Temperature (97.8 F-99.1 F) 97.1 F L Temperature Source Temporal Pulse Rate (60-100) 91 Pulse Location Monitor Blood Pressure (90/60-120/80) 131/80 H Blood Pressure Mean (mm Hg) 97 Source Monitor History Since Last Visit- (Skip if this is Patient's initial visit) Have you changed medications since your No last visit? Any new allergies or adverse reactions No Had a fall/change in ADL's that may No increase risk of falls Signs or symptoms of abuse and/or No neglect since last visit Have you been in the hospital since your No last visit? Has dressing in place as prescribed Yes Has compression in place as prescribed N/A Has offloadiing in place as prescribed N/A Experienced any changes in pain level or No management Left Footwear Regular Shoe Right Footwear Regular Shoe Pain Scale: 0-10 Numeric Is Patient Pain Free? Yes - Nurse 1 - General Ulcer Measurement Start: 11/22/21 08:36 Freq: Status: Active Protocol: Activity Type Activity Date Activity User E-Sign Co-Sign Detail Recorded Client Recorded Date Recorded By Document 11/22/21 08:36 AK [id number] 11/22/21 08:39 AK 11/22/21 08:36 Wound Center Nurse 1 #1- LOWER ABDOMEN MIDLINE -Combined with other wound No -Current Size (cm) - Length 0.3 -Current Size (cm) - Width 0.4 -Current Size (cm) - Depth 3 -Total Square Cm 0.12 -Photo Taken No -Epithelialization None Present -Tunneling No -Undermining/Tunneling No -Circular Undermining No -Change in Wound Grade/Stage No -Exudate Amt Large -Exudate Type Serosanguineous -Wound Margin Distinct, Outline Attached -Granulation Quality N/A -Slough/Fibrin Yes -Necrosis Amt Medium (34-66%) -Necrotic Tissue Type Adherent Slough -Structure Exposed N/A -Texture (Anaid-wound Skin Appearance) No Abnormality, Assessed -Moisture (Anaid-wound Skin Appearance) No Abnormality, Assessed -Color (Anaid-wound Skin Appearance) No Abnormality, Assessed -Temperature (Anaid-wound Skin No Abnormality Appearance) (Pt Warm) -Tenderness on Palpation (Anaid-wound No Skin Appearance) -Ulcer Cleansing Rinsed/ Irrigated with Saline -Foul Odor after Cleansing No -Anesthetic Used 4% Lidocaine Solution - Nurse 2 - General Ulcer CM Notes Start: 11/22/21 08:36 Freq: Status: Active Protocol: Activity Type Activity Date Activity User E-Sign Co-Sign Detail Recorded Client Recorded Date Recorded By Document 11/22/21 08:41 MW [id number] 11/22/21 08:48 MW 11/22/21 08:41 Wound Center Nurse 2 -Time 08:43 -Correct Patient Yes -Correct Side, Site, Position Yes -Correct Procedure Yes -Procedure Performed Yes -Type of Procedure Debridement -Clinical Debridement Subcutaneous -Tissue Removed Subcutaneous -Post Debridement (cm) - Length 0.3 -Post Debridement (cm) - Width 0.4 -Post Debridement (cm) - Depth 3.2 -Total Square (Post) (cm) 0.12 -Area of Debridement (cm) - Length 0.3 -Area of Debridement (cm) - Width 0.4 -Total Square (Area) (cm) 0.12 -Tunneling No -Undermining/Tunneling No -Circular Undermining No -Wound/Ulcer Outcome Not Healed -Ulcer Cleansing Rinsed/ Irrigated with Saline -Foul Odor after Cleansing No -Bioengineered Tissue No -Bleeding Controlled with Pressure -Treatment Response Procedure Tolerated Well -Offloading No -Debridement - Subq, 1st 20sq cm Yes Pain Scale: 0-10 Numeric Is Patient Pain Free? Yes WC - Nurse 3 - General Ulcer D/C NN Start: 11/22/21 08:36 Freq: Status: Active Protocol: Activity Type Activity Date Activity User E-Sign Co-Sign Detail Recorded Client Recorded Date Recorded By Document 11/22/21 08:51 DL [id number] 11/22/21 08:53 DL 11/22/21 08:51 Wound Care Nurse 3 #1- LOWER ABDOMEN MIDLINE -Ulcer Cleansing Rinsed/ Irrigated with Saline -Foul Odor after Cleansing No -Negative Pressure Wound Therapy Continue -Setting (mmHg) 150 -Negative Pressure is Continuous -NPWT Application Charge NPWT </= 50 sq cm ($) Treatment Response Procedure Tolerated Well Pain Scale: 0-10 Numeric Is Patient Pain Free? Yes WC - Visit Discharge Discharge Condition Stable Ambulatory Status Ambulatory Transportation Private Auto Assessment/Plan Assessment/Plan (1) Nonhealing surgical wound: CODE(S): T81.89XA - Other complications of procedures, not elsewhere classified, initial encounter QUALIFIERS: Encounter type: initial encounter Qualified Code(s): T81.89XA - Other complications of procedures, not elsewhere classified, initial encounter PLAN: Stop the packing will start wound VAC at 150 mmHg Home health to come in and take care of wound VAC twice weekly Follow-up 2 week (2) Renal insufficiency: CODE(S): N28.9 - Disorder of kidney and ureter, unspecified
[2021-12-06 08:25] VITALS: BP 151/78; PULSE 82; RESP 16; TEMP 35.9; BMI 33.9
--- NOTE | 2021-12-06 11:07 | PCM.WC.PN ---
History of Present Illness Date of Service: 12/06/21 Chief Complaint: Follow-up on surgical wound lower abdomen Follow-up on surgical wound lower Midabdomen History of Wound: 66-year-old white male, had a colonoscopy done in late summer was found to have low pulse ox while performing the procedure. 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 Patient was sent to [facility] and basically told there was nothing they could do for him and that he was pretty well going to . His daughters were upset and wanted to get a second opinion and call the [facility]. Patient was transferred down to [facility] and they perform surgery on him and remove the sarcoma in its totality and basically the patient does not need chemo. 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 He was admitted for with chest tubes and had been there for quite a while he still has this nonhealing wound in the lower abdomen that he states was a drain from his original surgery. He then went to [place] [facility] and they only want to see him every 1 to 3 months and told him just to pack it with new gauze. They did not like that so they decided to change facilities and that is how he was sent to us. Progress of Wound: Patient's last seen was 2 weeks ago and we started the wound VAC. Wound VAC at 150 mmHg is doing very well and now it is a small indentation with little depth compared to what it was. No sign of infection healing well. Drainage has to be minimal now. Subjective Subjective Patient was informed that he is more and they found spots on his pancreas. He was happy to hear that the wound VAC is working well. Objective Data Objective Data Vital Signs: Vital Signs Temp Pulse Resp BP 96.6 F L 82 16 151/78 H 12/06/21 08:25 12/06/21 08:25 12/06/21 08:25 12/06/21 08:25 Oxygen Delivery Method Room Air Weight: 223 lb Body Mass Index (BMI) 33.9 Physical Exam Const oriented x3 General Appearance: cooperative Exam Limitations: no limitations HEENT normocephalic Head and Scalp: normal to inspection Face and Sinus: normal facial exam Nose: external nose normal General Ear: hearing grossly impaired External Ear: external ears normal Mouth: oral and palatal mucosa normal Eyes PERRL General Eye: normal appearance of both eyes Neck full ROM General: normal visual inspection Resp normal respiratory effort Effort and Inspection: able to speak in complete sentences Auscultation: clear to auscultation bilaterally Cardio regular rate and regular rhythm Palpation: normal PMI Rate: regular rate Rhythm: regular rhythm GI Auscultation: normoactive bowel sounds Palpation: soft and no hepatosplenomegaly external exam normal Back/Spine Cervical Spine: cervical ROM normal Thoracic Spine / Upper Back: normal to inspection Lumbar Spine / Lower Back: normal to inspection Extremity normal to inspection General Extremity: normal exam except as noted Skin no rashes or lesions noted Neuro oriented x3 Psych Appearance: grossly normal Speech: normal speech Thought Content: normal thought content Judgement: judgement good Debridement Note Debridement Note Wound debrided: Mid lower abdomen surgical wound Type of Debridement: Excisional debridement Anesthesia Used: 5% Lidocaine Gel Depth: Down to and including healthy tissue Percentage of wound debrided: 100 Instrument Used: 3mm curette Severity: Fat Layer Exposed Amount of bleeding with debridement: Mild Post-Debridement Measurements and Additional Note: Post-Debridement Measurements/Treatment - Nurse 1 - General Ulcer Assessment Start: 11/22/21 08:36 Freq: Status: Active Protocol: DELORIS Activity Type Activity Date Activity User E-Sign Co-Sign Detail Recorded Client Recorded Date Recorded By Document 11/22/21 08:36 AR [id number] 11/22/21 08:39 AR Document 12/06/21 08:25 [facility] [id number] 12/06/21 08:28 [facility] 11/22/21 12/06/21 08:36 08:25 - Today's Visit Information Type of service Follow-up Visit Follow-up Visit (Physician/FUR TRIMMER (Physician/FUR TRIMMER ) ) Arrival Mode Ambulatory Ambulatory Transfer Assistance None Accompanied by Patient Identification Verified (Name & Yes Yes ) Patient Requires Transmission-Based No No Precautions Safety Precautions NA Height and Weight Body Mass Index (BMI) 33.9 33.9 BMI Classification Obese Obese Vital Signs Temperature (97.8 F-99.1 F) 97.1 F L 96.6 F L Temperature Source Temporal Temporal Pulse Rate (60-100) 91 82 Pulse Location Monitor Monitor Respiratory Rate (12-18) 16 Respiratory rate source Observation Oxygen Delivery Method Room Air Blood Pressure (90/60-120/80) 131/80 H 151/78 H Blood Pressure Mean (mm Hg) 97 102 Source Monitor Monitor Position Sitting Blood Pressure Location Left Arm History Since Last Visit- (Skip if this is Patient's initial visit) Have you changed medications since your No No last visit? Any new allergies or adverse reactions No No Had a fall/change in ADL's that may No No increase risk of falls Signs or symptoms of abuse and/or No No neglect since last visit Have you been in the hospital since your No No last visit? Has dressing in place as prescribed Yes Yes Has compression in place as prescribed N/A N/A Has offloadiing in place as prescribed N/A N/A Experienced any changes in pain level or No No management Left Footwear Regular Shoe Regular Shoe Right Footwear Regular Shoe Regular Shoe Pain Scale: 0-10 Numeric Is Patient Pain Free? Yes Yes WC - Nurse 1 - General Ulcer Measurement Start: 11/22/21 08:36 Freq: Status: Active Protocol: Activity Type Activity Date Activity User E-Sign Co-Sign Detail Recorded Client Recorded Date Recorded By Document 11/22/21 08:36 AR [id number] 11/22/21 08:39 AK Document 12/06/21 08:25 [facility] [id number] 12/06/21 08:28 [facility] 11/22/21 12/06/21 08:36 08:25 Wound Center Nurse 1 #1- LOWER ABDOMEN MIDLINE -Combined with other wound No No -Current Size (cm) - Length 0.3 0.8 -Current Size (cm) - Width 0.4 0.7 -Current Size (cm) - Depth 3 0.7 -Total Square Cm 0.12 0.56 -Photo Taken No No -Epithelialization None Present -Tunneling No No -Undermining/Tunneling No No -Circular Undermining No No -Change in Wound Grade/Stage No -Exudate Amt Large Medium -Exudate Type Serosanguineous Serosanguineous -Wound Margin Distinct, Distinct, Outline Outline Attached Attached -Granulation Amt Large (67-100%) -Granulation Quality N/A [place] -Slough/Fibrin Yes Yes -Necrosis Amt Medium (34-66%) Small (1-33%) -Necrotic Tissue Type Adherent Slough Adherent Slough -Structure Exposed N/A -Texture (Anaid-wound Skin Appearance) No Abnormality, Assessed, Assessed Scarring -Moisture (Anaid-wound Skin Appearance) No Abnormality, Assessed Assessed -Color (Anaid-wound Skin Appearance) No Abnormality, Assessed Assessed -Temperature (Anaid-wound Skin No Abnormality No Abnormality Appearance) (Pt Warm) (Pt Warm) -Tenderness on Palpation (Anaid-wound No No Skin Appearance) -Ulcer Cleansing Rinsed/ Soap and Water Irrigated with Saline -Foul Odor after Cleansing No No -Anesthetic Used 4% Lidocaine 4% Lidocaine Solution Solution - Nurse 2 - General Ulcer CM Notes Start: 11/22/21 08:36 Freq: Status: Active Protocol: Activity Type Activity Date Activity User E-Sign Co-Sign Detail Recorded Client Recorded Date Recorded By Document 11/22/21 08:41 MW [id number] 11/22/21 08:48 MW Document 12/06/21 08:54 MW [id number] 12/06/21 08:56 MW 11/22/21 12/06/21 08:41 08:54 Wound Center Nurse 2 #1- LOWER ABDOMEN MIDLINE -Time 08:43 08:54 -Correct Patient Yes Yes -Correct Side, Site, Position Yes Yes -Correct Procedure Yes Yes -Procedure Performed Yes Yes -Type of Procedure Debridement Debridement -Clinical Debridement Subcutaneous Subcutaneous -Tissue Removed Subcutaneous Subcutaneous -Post Debridement (cm) - Length 0.3 0.9 -Post Debridement (cm) - Width 0.4 1.0 -Post Debridement (cm) - Depth 3.2 1.3 -Total Square (Post) (cm) 0.12 0.90 -Area of Debridement (cm) - Length 0.3 0.9 -Area of Debridement (cm) - Width 0.4 1.0 -Total Square (Area) (cm) 0.12 0.90 -Tunneling No No -Undermining/Tunneling No No -Circular Undermining No No -Wound/Ulcer Outcome Not Healed Not Healed -Ulcer Cleansing Rinsed/ Rinsed/ Irrigated with Irrigated with Saline Saline -Foul Odor after Cleansing No No -Bioengineered Tissue No No -Bleeding Controlled with Pressure Pressure -Treatment Response Procedure Procedure Tolerated Well Tolerated Well -Offloading No No -Debridement - Subq, 1st 20sq cm Yes Yes Pain Scale: 0-10 Numeric Is Patient Pain Free? Yes Yes - Nurse 3 - General Ulcer D/C NN Start: 11/22/21 08:36 Freq: Status: Active Protocol: Activity Type Activity Date Activity User E-Sign Co-Sign Detail Recorded Client Recorded Date Recorded By Document 11/22/21 08:51 DL [id number] 11/22/21 08:53 DL Document 11/22/21 12:12 DL [id number] 11/22/21 12:13 DL Edit Result 11/22/21 12:12 DL (1) [id number] 11/22/21 12:14 DL Edit Result 11/22/21 12:12 DL (2) [id number] 11/22/21 14:09 PL Document 12/06/21 09:17 MT [id number] 12/06/21 09:18 MT (1) Notes: => dressing applied per A.K. [employer] today. (2) #1- LOWER ABDOMEN MIDLINE - NPWT Application Charge NPWT </= 50 sq cm => NPWT & Debridement ($) => (nc) 11/22/21 11/22/21 12/06/21 08:51 12:12 09:17 Wound Care Nurse 3 #1- LOWER ABDOMEN MIDLINE -Ulcer Cleansing Rinsed/ Rinsed/ Rinsed/ Irrigated with Irrigated with Irrigated with Saline Saline Saline -Foul Odor after Cleansing No No No -Negative Pressure Wound Therapy Continue Continue Continue -Setting (mmHg) 150 150 150 -Negative Pressure is Continuous Continuous Continuous -Other Covering white foam to tunnel -NPWT Application Charge NPWT </= 50 sq NPWT & NPWT </= 50 sq cm ($) Debridement (nc cm ($) ) Treatment Response Procedure Procedure Tolerated Well Tolerated Well Pain Scale: 0-10 Numeric Is Patient Pain Free? Yes Yes Yes WC - Visit Discharge Discharge Condition Stable Stable Stable Ambulatory Status Ambulatory Ambulatory Ambulatory Transportation Private Auto Private Auto Private Auto Accompanied by Medication Reconcilliation completed & No provided to patient/care provider Clinical Summary of Care Provided Yes Notes: dressing applied per A.K . [employer]PECTOR [employer] today. Assessment/Plan Assessment/Plan (1) Nonhealing surgical wound: CODE(S): T81.89XA - Other complications of procedures, not elsewhere classified, initial encounter QUALIFIERS: Encounter type: initial encounter Qualified Code(s): T81.89XA - Other complications of procedures, not elsewhere classified, initial encounter PLAN: Continue wound VAC at 150 mmHg Home health to come in and take care of wound VAC twice weekly Follow-up 1 week (2) Renal insufficiency: CODE(S): N28.9 - Disorder of kidney and ureter, unspecified
== END 2021-12-09 23:59 | disposition home or self-care (01) ==
LOC: WC 08:30
PROVIDERS: PCP Family Medicine; Visit Provider Nurse Practitioner
DX: T81.89XA Other complications of procedures, not elsewhere classified, initial encounter (principal); S31.109A Unspecified open wound of abdominal wall, unspecified quadrant without penetration into peritoneal cavity, initial encounter; N28.9 Disorder of kidney and ureter, unspecified; Z79.01 Long term (current) use of anticoagulants; Z79.899 Other long term (current) drug therapy; Z90.5 Acquired absence of kidney; Z85.831 Personal history of malignant neoplasm of soft tissue
CPT/HCPCS: 11042; 97605

== ENCOUNTER 2022-01-03 08:30 | Outpatient (RCR) | payer MEDICARE, OTHER, SELFPAY ==
[2021-12-10 00:33] VITALS: BP 151/78; PULSE 82; RESP 16; TEMP 35.9; BMI 33.9
[2021-12-13 08:26] VITALS: BP 153/86; PULSE 87; TEMP 36; BMI 33.9
--- NOTE | 2021-12-13 09:42 | PN.PCM_ITS ---
History of Present Illness Date of Service: 12/13/21 Chief Complaint: Follow-up on surgical wound lower abdomen Follow-up on surgical wound lower Midabdomen History of Wound: 66-year-old white male, had a colonoscopy done in late summer was found to have low pulse ox while performing the procedure. 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 Patient was sent to [facility] and basically told there was nothing they could do for him and that he was pretty well going to . His daughters were upset and wanted to get a second opinion and call the [facility]. Patient was transferred down to [facility] and they perform surgery on him and remove the sarcoma in its totality and basically the patient does not need chemo. 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 He was admitted for with chest tubes and had been there for quite a while he still has this nonhealing wound in the lower abdomen that he states was a drain from his original surgery. He then went to [place] [facility] and they only want to see him every 1 to 3 months and told him just to pack it with new gauze. They did not like that so they decided to change facilities and that is how he was sent to us. Progress of Wound: The depth is only about half its centimeters. Patient has been doing very well with the wound VAC will DC at this time and just use Fibracol to pack with. Patient has biopsies coming up on Saturday so he was not really looking forward to caring that wound VAC around. No sign of infection healing well. Subjective Subjective Patient was very happy that did not need to use the wound VAC anymore Objective Data Objective Data No sign of infection healing well we will add Fibracol and to stop the wound VAC at this point Vital Signs: Vital Signs Temp Pulse Resp BP 96.8 F L 87 16 153/86 H 12/13/21 08:26 12/13/21 08:26 12/10/21 00:33 12/13/21 08:26 Weight: 223 lb Body Mass Index (BMI) 33.9 Physical Exam Const oriented x3 General Appearance: cooperative Exam Limitations: no limitations HEENT normocephalic Head and Scalp: normal to inspection Face and Sinus: normal facial exam Nose: external nose normal General Ear: hearing grossly impaired External Ear: external ears normal Mouth: oral and palatal mucosa normal Eyes PERRL General Eye: normal appearance of both eyes Neck full ROM General: normal visual inspection Resp normal respiratory effort Effort and Inspection: able to speak in complete sentences Auscultation: clear to auscultation bilaterally Cardio regular rate and regular rhythm Palpation: normal PMI Rate: regular rate Rhythm: regular rhythm GI Auscultation: normoactive bowel sounds Palpation: soft and no hepatosplenomegaly external exam normal Back/Spine Cervical Spine: cervical ROM normal Thoracic Spine / Upper Back: normal to inspection Lumbar Spine / Lower Back: normal to inspection Extremity normal to inspection General Extremity: normal exam except as noted Skin no rashes or lesions noted Neuro oriented x3 Psych Appearance: grossly normal Speech: normal speech Thought Content: normal thought content Judgement: judgement good Debridement Note Debridement Note Wound debrided: Lower abdominal open wound from surgery Type of Debridement: Excisional debridement Depth: Down to and including healthy tissue Percentage of wound debrided: 100 Instrument Used: 3mm curette Tissue Removed: Fibrin Severity: Fat Layer Exposed Amount of bleeding with debridement: Mild Bleeding Controlled with: Compression and gauze Patient tolerated procedure: Patient tolerated procedure well Post-Debridement Measurements and Additional Note: Post-Debridement Measurements/Treatment - Nurse 1 - General Ulcer Assessment Start: 12/13/21 08:26 Freq: Status: Active Protocol: DELORIS Activity Type Activity Date Activity User E-Sign Co-Sign Detail Recorded Client Recorded Date Recorded By Document 12/13/21 08:26 LV [id number] 12/13/21 08:28 LV 12/13/21 08:26 - Today's Visit Information Type of service Follow-up Visit (Physician/DIESEL ENGINE SPECIALIST ) Arrival Mode Ambulatory Patient Identification Verified (Name & Yes ) Height and Weight Body Mass Index (BMI) 33.9 BMI Classification Obese Vital Signs Temperature (97.8 F-99.1 F) 96.8 F L Temperature Source Temporal Pulse Rate (60-100) 87 Pulse Location Monitor Blood Pressure (90/60-120/80) 153/86 H Blood Pressure Mean (mm Hg) 108 Source Monitor Position Sitting Blood Pressure Location Left Arm History Since Last Visit- (Skip if this is Patient's initial visit) Have you changed medications since your No last visit? Any new allergies or adverse reactions No Had a fall/change in ADL's that may No increase risk of falls Signs or symptoms of abuse and/or No neglect since last visit Have you been in the hospital since your No last visit? Has dressing in place as prescribed Yes Has compression in place as prescribed N/A Has offloadiing in place as prescribed N/A Experienced any changes in pain level or No management Left Footwear Regular Shoe Right Footwear Regular Shoe Pain Scale: 0-10 Numeric Is Patient Pain Free? Yes - Nurse 1 - General Ulcer Measurement Start: 12/13/21 08:26 Freq: Status: Active Protocol: Activity Type Activity Date Activity User E-Sign Co-Sign Detail Recorded Client Recorded Date Recorded By Document 12/13/21 08:26 KR [id number] 12/13/21 08:28 KR 12/13/21 08:26 Wound Center Nurse 1 #1- LOWER ABDOMEN MIDLINE -Current Size (cm) - Length 0.3 -Current Size (cm) - Width 0.3 -Current Size (cm) - Depth 1.1 -Total Square Cm 0.09 -Exudate Amt Small -Exudate Type Serosanguineous -Wound Margin Distinct, Outline Attached -Granulation Amt Small (1-33%) -Granulation Quality [place] -Necrosis Amt None Present (0 %) -Texture (Anaid-wound Skin Appearance) Assessed, Scarring -Moisture (Anaid-wound Skin Appearance) No Abnormality, Assessed -Color (Anaid-wound Skin Appearance) No Abnormality, Assessed -Temperature (Anaid-wound Skin No Abnormality Appearance) (Pt Warm) -Tenderness on Palpation (Anaid-wound No Skin Appearance) -Ulcer Cleansing Soap and Water -Foul Odor after Cleansing No -Anesthetic Used 4% Lidocaine Solution - Nurse 2 - General Ulcer CM Notes Start: 12/13/21 08:26 Freq: Status: Active Protocol: Activity Type Activity Date Activity User E-Sign Co-Sign Detail Recorded Client Recorded Date Recorded By Document 12/13/21 08:37 MW [id number] 12/13/21 08:41 MW 12/13/21 08:37 Wound Center Nurse 2 -Time 08:38 -Correct Patient Yes -Correct Side, Site, Position Yes -Correct Procedure Yes -Procedure Performed Yes -Type of Procedure Debridement -Clinical Debridement Subcutaneous -Tissue Removed Subcutaneous -Post Debridement (cm) - Length 0.5 -Post Debridement (cm) - Width 0.5 -Post Debridement (cm) - Depth 0.5 -Total Square (Post) (cm) 0.25 -Area of Debridement (cm) - Length 0.5 -Area of Debridement (cm) - Width 0.5 -Total Square (Area) (cm) 0.25 -Tunneling No -Undermining/Tunneling No -Circular Undermining No -Wound/Ulcer Outcome Not Healed -Ulcer Cleansing Rinsed/ Irrigated with Saline -Foul Odor after Cleansing No -Bioengineered Tissue No -Bleeding Controlled with Pressure -Treatment Response Procedure Tolerated Well -Offloading No -Debridement - Subq, 1st 20sq cm Yes Pain Scale: 0-10 Numeric Is Patient Pain Free? Yes - Nurse 3 - General Ulcer D/C NN Start: 12/13/21 08:26 Freq: Status: Active Protocol: Activity Type Activity Date Activity User E-Sign Co-Sign Detail Recorded Client Recorded Date Recorded By Document 12/13/21 08:50 [id number] 12/13/21 08:50 LV 12/13/21 08:50 Wound Care Nurse 3 #1- LOWER ABDOMEN MIDLINE -Ulcer Cleansing Rinsed/ Irrigated with Saline -Primary Dressing Applied Fibracol Plus 4x4,Mepilex Border -Fibracol Plus 4x4 1 -Mepilex Border 1 Pain Scale: 0-10 Numeric Is Patient Pain Free? Yes - Visit Discharge Discharge Condition Stable Ambulatory Status Ambulatory Transportation Private Auto Assessment/Plan Assessment/Plan (1) Nonhealing surgical wound: CODE(S): T81.89XA - Other complications of procedures, not elsewhere classified, initial encounter QUALIFIERS: Encounter type: initial encounter Qualified Code(s): T81.89XA - Other complications of procedures, not elsewhere classified, initial encounter PLAN: Discontinue wound VAC at 150 mmHg Start packing with Fibracol every day moisten and cover with gauze and tape Home health to come in and take care of wound care 2 times a week Follow-up in 1 week (2) Renal insufficiency: CODE(S): N28.9 - Disorder of kidney and ureter, unspecified
[2021-12-20 08:20] VITALS: BP 167/84; PULSE 91; TEMP 35.7; BMI 33.9
--- NOTE | 2021-12-20 09:13 | PCM.WC.PN ---
History of Present Illness Date of Service: 12/20/21 Chief Complaint: Follow-up on surgical wound lower abdomen Follow-up on surgical wound lower Midabdomen History of Wound: 66-year-old white male, had a colonoscopy done in late summer was found to have low pulse ox while performing the procedure. 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 Patient was sent to [facility] and basically told there was nothing they could do for him and that he was pretty well going to . His daughters were upset and wanted to get a second opinion and call the [facility]. Patient was transferred down to [facility] and they perform surgery on him and remove the sarcoma in its totality and basically the patient does not need chemo. 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 He was admitted for with chest tubes and had been there for quite a while he still has this nonhealing wound in the lower abdomen that he states was a drain from his original surgery. He then went to [place] [facility] and they only want to see him every 1 to 3 months and told him just to pack it with new gauze. They did not like that so they decided to change facilities and that is how he was sent to us. Progress of Wound: The depth has improved it still there at 0.6 this week we will continue with the Fibracol this week and no wound VAC patient tolerating well. Patient requesting to discontinue home health because of the shallowness of the dressing and it is easy for him to do. Plus the patient is going down to the [facility] again cancer has been found in other places and will need further surgery and needs to be more flexible to go down there. Subjective Subjective Patient request that we discontinued home health care from [place]. Objective Data Objective Data No sign of infection area looks good we will continue with the Fibracol patient can follow-up in a couple of weeks Vital Signs: Vital Signs Temp Pulse Resp BP 96.3 F L 91 16 167/84 H 12/20/21 08:20 12/20/21 08:20 12/10/21 00:33 12/20/21 08:20 Weight: 223 lb Body Mass Index (BMI) 33.9 Lab / Micro Data Attestation: I reviewed the patient's lab results. Physical Exam Const oriented x3 General Appearance: cooperative Exam Limitations: no limitations HEENT normocephalic Head and Scalp: normal to inspection Face and Sinus: normal facial exam Nose: external nose normal General Ear: hearing grossly impaired External Ear: external ears normal Mouth: oral and palatal mucosa normal Eyes PERRL General Eye: normal appearance of both eyes Neck full ROM General: normal visual inspection Resp normal respiratory effort Effort and Inspection: able to speak in complete sentences Auscultation: clear to auscultation bilaterally Cardio regular rate and regular rhythm Palpation: normal PMI Rate: regular rate Rhythm: regular rhythm GI Auscultation: normoactive bowel sounds Palpation: soft and no hepatosplenomegaly external exam normal Back/Spine Cervical Spine: cervical ROM normal Thoracic Spine / Upper Back: normal to inspection Lumbar Spine / Lower Back: normal to inspection Extremity normal to inspection General Extremity: normal exam except as noted Skin no rashes or lesions noted Neuro oriented x3 Psych Appearance: grossly normal Speech: normal speech Thought Content: normal thought content Judgement: judgement good Debridement Note Debridement Note Wound debrided: Lower abdominal wound from surgery Type of Debridement: Excisional debridement Anesthesia Used: 5% Lidocaine Gel Depth: Down to and including healthy tissue Percentage of wound debrided: 100 Instrument Used: - (1. Millimeter curette) Tissue Removed: Fibrin Severity: Fat Layer Exposed Amount of bleeding with debridement: Mild Bleeding Controlled with: Compression and gauze and - (Irrigated with normal saline) Patient tolerated procedure: Patient tolerated procedure well Post-Debridement Measurements and Additional Note: Post-Debridement Measurements/Treatment - Nurse 1 - General Ulcer Assessment Start: 12/13/21 08:26 Freq: Status: Active Protocol: DELORIS Activity Type Activity Date Activity User E-Sign Co-Sign Detail Recorded Client Recorded Date Recorded By Document 12/13/21 08:26 KR [id number] 12/13/21 08:28 KR Document 12/20/21 08:20 AK [id number] 12/20/21 08:25 AK 12/13/21 12/20/21 08:26 08:20 - Today's Visit Information Type of service Follow-up Visit Follow-up Visit (Physician/JAVA TECHNICAL MANAGER (Physician/JAVA TECHNICAL MANAGER ) ) Arrival Mode Ambulatory Ambulatory Patient Identification Verified (Name & Yes Yes ) Patient Requires Transmission-Based No Precautions Safety Precautions NA Height and Weight Body Mass Index (BMI) 33.9 33.9 BMI Classification Obese Obese Vital Signs Temperature (97.8 F-99.1 F) 96.8 F L 96.3 F L Temperature Source Temporal Temporal Pulse Rate (60-100) 87 91 Pulse Location Monitor Monitor Blood Pressure (90/60-120/80) 153/86 H 167/84 H Blood Pressure Mean (mm Hg) 108 111 Source Monitor Monitor Position Sitting Blood Pressure Location Left Arm History Since Last Visit- (Skip if this is Patient's initial visit) Have you changed medications since your No No last visit? Any new allergies or adverse reactions No No Had a fall/change in ADL's that may No No increase risk of falls Signs or symptoms of abuse and/or No No neglect since last visit Have you been in the hospital since your No No last visit? Has dressing in place as prescribed Yes Yes Has compression in place as prescribed N/A N/A Has offloadiing in place as prescribed N/A N/A Experienced any changes in pain level or No No management Left Footwear Regular Shoe Regular Shoe Right Footwear Regular Shoe Regular Shoe Pain Scale: 0-10 Numeric Is Patient Pain Free? Yes Yes WC - Nurse 1 - General Ulcer Measurement Start: 12/13/21 08:26 Freq: Status: Active Protocol: Activity Type Activity Date Activity User E-Sign Co-Sign Detail Recorded Client Recorded Date Recorded By Document 12/13/21 08:26 KR [id number] 12/13/21 08:28 KR Document 12/20/21 08:20 AK [id number] 12/20/21 08:25 AK 12/13/21 12/20/21 08:26 08:20 Wound Center Nurse 1 #1- LOWER ABDOMEN MIDLINE -Combined with other wound No -Current Size (cm) - Length 0.3 0.1 -Current Size (cm) - Width 0.3 0.1 -Current Size (cm) - Depth 1.1 0.6 -Total Square Cm 0.09 0.01 -Photo Taken No -Tunneling No -Undermining/Tunneling No -Circular Undermining No -Change in Wound Grade/Stage No -Exudate Amt Small Small -Exudate Type Serosanguineous Serosanguineous -Wound Margin Distinct, Distinct, Outline Outline Attached Attached -Granulation Amt Small (1-33%) None Present (0 %) -Granulation Quality [place] N/A -Slough/Fibrin No -Necrosis Amt None Present (0 None Present (0 %) %) -Structure Exposed N/A -Texture (Anaid-wound Skin Appearance) Assessed, Assessed, Scarring Scarring -Moisture (Anaid-wound Skin Appearance) No Abnormality, No Abnormality, Assessed Assessed -Color (Anaid-wound Skin Appearance) No Abnormality, No Abnormality, Assessed Assessed -Temperature (Anaid-wound Skin No Abnormality No Abnormality Appearance) (Pt Warm) (Pt Warm) -Tenderness on Palpation (Anaid-wound No No Skin Appearance) -Ulcer Cleansing Soap and Water Rinsed/ Irrigated with Saline -Foul Odor after Cleansing No No -Anesthetic Used 4% Lidocaine 4% Lidocaine Solution Solution WC - Nurse 2 - General Ulcer CM Notes Start: 12/13/21 08:26 Freq: Status: Active Protocol: Activity Type Activity Date Activity User E-Sign Co-Sign Detail Recorded Client Recorded Date Recorded By Document 12/13/21 08:37 MW [id number] 12/13/21 08:41 MW Document 12/20/21 08:31 MW [id number] 12/20/21 08:34 MW 12/13/21 12/20/21 08:37 08:31 Wound Center Nurse 2 #1- LOWER ABDOMEN MIDLINE -Time 08:38 08:32 -Correct Patient Yes Yes -Correct Side, Site, Position Yes Yes -Correct Procedure Yes Yes -Procedure Performed Yes Yes -Type of Procedure Debridement Debridement -Clinical Debridement Subcutaneous Subcutaneous -Tissue Removed Subcutaneous Subcutaneous -Post Debridement (cm) - Length 0.5 0.3 -Post Debridement (cm) - Width 0.5 0.3 -Post Debridement (cm) - Depth 0.5 0.6 -Total Square (Post) (cm) 0.25 0.09 -Area of Debridement (cm) - Length 0.5 0.3 -Area of Debridement (cm) - Width 0.5 0.3 -Total Square (Area) (cm) 0.25 0.09 -Tunneling No No -Undermining/Tunneling No No -Circular Undermining No No -Wound/Ulcer Outcome Not Healed Not Healed -Ulcer Cleansing Rinsed/ Rinsed/ Irrigated with Irrigated with Saline Saline -Foul Odor after Cleansing No No -Bioengineered Tissue No No -Bleeding Controlled with Pressure Pressure -Treatment Response Procedure Procedure Tolerated Well Tolerated Well -Offloading No No -Debridement - Subq, 1st 20sq cm Yes Yes Pain Scale: 0-10 Numeric Is Patient Pain Free? Yes Yes - Nurse 3 - General Ulcer D/C NN Start: 12/13/21 08:26 Freq: Status: Active Protocol: Activity Type Activity Date Activity User E-Sign Co-Sign Detail Recorded Client Recorded Date Recorded By Document 12/13/21 08:50 KR [id number] 12/13/21 08:50 KR Document 12/20/21 08:27 AK [id number] 12/20/21 08:27 AK Document 12/20/21 08:37 BM [id number] 12/20/21 08:38 BMF 12/13/21 12/20/21 12/20/21 08:50 08:27 08:37 Wound Care Nurse 3 #1- LOWER ABDOMEN MIDLINE -Ulcer Cleansing Rinsed/ Rinsed/ Irrigated with Irrigated with Saline Saline -Foul Odor after Cleansing No -Primary Dressing Applied Fibracol Plus NonAdherent Fibracol Plus 4x4,Mepilex Contact Layer, 4x4,Mepilex Border Promogran Border -Primary Dressing Covered/Secured with Dry Gauze, Secured with Tape -Fibracol Plus 4x4 1 1 -Mepilex Border 1 1 -Promogran 1 Treatment Response Procedure Tolerated Well Pain Scale: 0-10 Numeric Is Patient Pain Free? Yes Yes Yes - Visit Discharge Discharge Condition Stable Stable Stable Ambulatory Status Ambulatory Ambulatory Ambulatory Transportation Private Auto Private Auto Private Auto Medication Reconcilliation completed & Yes provided to patient/care provider Clinical Summary of Care Provided Yes Assessment/Plan Assessment/Plan (1) Nonhealing surgical wound: CODE(S): T81.89XA - Other complications of procedures, not elsewhere classified, initial encounter QUALIFIERS: Encounter type: initial encounter Qualified Code(s): T81.89XA - Other complications of procedures, not elsewhere classified, initial encounter PLAN: Continue packing with Fibracol every day moisten and cover with gauze and tape Discontinue home health care Follow-up in 2 week (2) Renal insufficiency: CODE(S): N28.9 - Disorder of kidney and ureter, unspecified
[2022-01-03 08:25] VITALS: BP 176/88; PULSE 93; TEMP 36.4; BMI 33.9
--- NOTE | 2022-01-03 09:02 | PN.PCM_ITS ---
History of Present Illness Date of Service: 01/03/22 Chief Complaint: Follow-up on surgical wound lower abdomen Follow-up on surgical wound lower Midabdomen History of Wound: 66-year-old white male, had a colonoscopy done in late summer was found to have low pulse ox while performing the procedure. 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 Patient was sent to [facility] and basically told there was nothing they could do for him and that he was pretty well going to . His daughters were upset and wanted to get a second opinion and call the [facility]. Patient was transferred down to [facility] and they perform surgery on him and remove the sarcoma in its totality and basically the patient does not need chemo. 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 He was admitted for with chest tubes and had been there for quite a while he still has this nonhealing wound in the lower abdomen that he states was a drain from his original surgery. He then went to [place] [facility] and they only want to see him every 1 to 3 months and told him just to pack it with new gauze. They did not like that so they decided to change facilities and that is how he was sent to us. Progress of Wound: The depth has gotten a little deeper it still there at 0.8 this week we will continue with the Fibracol this week and no wound VAC patient tolerating well. Patient is scheduled for more biopsies and next week on his sarcoma. Subjective Subjective Patient has no concerns doing well appears in good spirits Objective Data Objective Data As written in progress notes the wound is still there the depth is a little bit deeper discussed with patient to continue to pack really well with the Q-tips. Vital Signs: Vital Signs Temp Pulse Resp BP 97.5 F L 93 16 176/88 H 01/03/22 08:25 01/03/22 08:25 12/10/21 00:33 01/03/22 08:25 Weight: 223 lb Body Mass Index (BMI) 33.9 Physical Exam Const oriented x3 General Appearance: cooperative Exam Limitations: no limitations HEENT normocephalic Head and Scalp: normal to inspection Face and Sinus: normal facial exam Nose: external nose normal General Ear: hearing grossly impaired External Ear: external ears normal Mouth: oral and palatal mucosa normal Eyes PERRL General Eye: normal appearance of both eyes Neck full ROM General: normal visual inspection Resp normal respiratory effort Effort and Inspection: able to speak in complete sentences Auscultation: clear to auscultation bilaterally Cardio regular rate and regular rhythm Palpation: normal PMI Rate: regular rate Rhythm: regular rhythm GI Auscultation: normoactive bowel sounds Palpation: soft and no hepatosplenomegaly external exam normal Back/Spine Cervical Spine: cervical ROM normal Thoracic Spine / Upper Back: normal to inspection Lumbar Spine / Lower Back: normal to inspection Extremity normal to inspection General Extremity: normal exam except as noted Skin no rashes or lesions noted Neuro oriented x3 Psych Appearance: grossly normal Speech: normal speech Thought Content: normal thought content Judgement: judgement good Debridement Note Debridement Note Wound debrided: Lower abdominal wound surgical nonhealing Type of Debridement: Excisional debridement Anesthesia Used: 5% Lidocaine Gel Depth: Down to and including healthy tissue Percentage of wound debrided: 100 Instrument Used: 3mm curette Severity: Fat Layer Exposed Amount of bleeding with debridement: Mild Bleeding Controlled with: Compression and gauze Patient tolerated procedure: Patient tolerated procedure well Post-Debridement Measurements and Additional Note: Post-Debridement Measurements/Treatment - Nurse 1 - General Ulcer Assessment Start: 12/13/21 08:26 Freq: Status: Active Protocol: DELORIS Activity Type Activity Date Activity User E-Sign Co-Sign Detail Recorded Client Recorded Date Recorded By Document 12/13/21 08:26 LV [id number] 12/13/21 08:28 KR Document 12/20/21 08:20 AK [id number] 12/20/21 08:25 AK Document 01/03/22 08:25 KR [id number] 01/03/22 08:26 KR 12/13/21 12/20/21 01/03/22 08:26 08:20 08:25 - Today's Visit Information Type of service Follow-up Visit Follow-up Visit Follow-up Visit (Physician/RECORDS MANAGEMENT COORDINATOR (Physician/RECORDS MANAGEMENT COORDINATOR (Physician/RECORDS MANAGEMENT COORDINATOR ) ) ) Arrival Mode Ambulatory Ambulatory Ambulatory Patient Identification Verified (Name & Yes Yes Yes ) Patient Requires Transmission-Based No Precautions Safety Precautions NA Height and Weight Body Mass Index (BMI) 33.9 33.9 33.9 BMI Classification Obese Obese Obese Vital Signs Temperature (97.8 F-99.1 F) 96.8 F L 96.3 F L 97.5 F L Temperature Source Temporal Temporal Temporal Pulse Rate (60-100) 87 91 93 Pulse Location Monitor Monitor Monitor Blood Pressure (90/60-120/80) 153/86 H 167/84 H 176/88 H Blood Pressure Mean (mm Hg) 108 111 117 Source Monitor Monitor Monitor Position Sitting Sitting Blood Pressure Location Left Arm Right Arm History Since Last Visit- (Skip if this is Patient's initial visit) Have you changed medications since your No No No last visit? Any new allergies or adverse reactions No No No Had a fall/change in ADL's that may No No No increase risk of falls Signs or symptoms of abuse and/or No No No neglect since last visit Have you been in the hospital since your No No No last visit? Has dressing in place as prescribed Yes Yes Yes Has compression in place as prescribed N/A N/A N/A Has offloadiing in place as prescribed N/A N/A N/A Experienced any changes in pain level or No No No management Left Footwear Regular Shoe Regular Shoe Regular Shoe Right Footwear Regular Shoe Regular Shoe Regular Shoe Pain Scale: 0-10 Numeric Is Patient Pain Free? Yes Yes Yes WC - Nurse 1 - General Ulcer Measurement Start: 12/13/21 08:26 Freq: Status: Active Protocol: Activity Type Activity Date Activity User E-Sign Co-Sign Detail Recorded Client Recorded Date Recorded By Document 12/13/21 08:26 LV [id number] 12/13/21 08:28 KR Document 12/20/21 08:20 AK [id number] 12/20/21 08:25 AK Document 01/03/22 08:25 KR [id number] 01/03/22 08:26 KR 12/13/21 12/20/21 01/03/22 08:26 08:20 08:25 Wound Center Nurse 1 #1- LOWER ABDOMEN MIDLINE -Combined with other wound No -Current Size (cm) - Length 0.3 0.1 0.2 -Current Size (cm) - Width 0.3 0.1 0.2 -Current Size (cm) - Depth 1.1 0.6 1 -Total Square Cm 0.09 0.01 0.04 -Photo Taken No -Tunneling No -Undermining/Tunneling No -Circular Undermining No -Change in Wound Grade/Stage No -Exudate Amt Small Small Small -Exudate Type Serosanguineous Serosanguineous Yellow/Green -Wound Margin Distinct, Distinct, Distinct, Outline Outline Outline Attached Attached Attached -Granulation Amt Small (1-33%) None Present (0 Medium (34-66%) %) -Granulation Quality [place] N/A [place] -Slough/Fibrin No -Necrosis Amt None Present (0 None Present (0 Medium (34-66%) %) %) -Necrotic Tissue Type Adherent Slough -Structure Exposed N/A -Texture (Anaid-wound Skin Appearance) Assessed, Assessed, Assessed, Scarring Scarring Scarring -Moisture (Anaid-wound Skin Appearance) No Abnormality, No Abnormality, No Abnormality, Assessed Assessed Assessed -Color (Anaid-wound Skin Appearance) No Abnormality, No Abnormality, No Abnormality, Assessed Assessed Assessed -Temperature (Anaid-wound Skin No Abnormality No Abnormality No Abnormality Appearance) (Pt Warm) (Pt Warm) (Pt Warm) -Tenderness on Palpation (Anaid-wound No No No Skin Appearance) -Ulcer Cleansing Soap and Water Rinsed/ Rinsed/ Irrigated with Irrigated with Saline Saline -Foul Odor after Cleansing No No No -Anesthetic Used 4% Lidocaine 4% Lidocaine 5% Lidocaine Solution Solution Gel WC - Nurse 2 - General Ulcer CM Notes Start: 12/13/21 08:26 Freq: Status: Active Protocol: Activity Type Activity Date Activity User E-Sign Co-Sign Detail Recorded Client Recorded Date Recorded By Document 12/13/21 08:37 MW [id number] 12/13/21 08:41 MW Document 12/20/21 08:31 MW [id number] 12/20/21 08:34 MW Document 01/03/22 08:38 PL [id number] 01/03/22 08:39 PL 12/13/21 12/20/21 01/03/22 08:37 08:31 08:38 Wound Center Nurse 2 #1- LOWER ABDOMEN MIDLINE -Time 08:38 08:32 08:33 -Correct Patient Yes Yes Yes -Correct Side, Site, Position Yes Yes Yes -Correct Procedure Yes Yes Yes -Procedure Performed Yes Yes Yes -Type of Procedure Debridement Debridement Debridement -Clinical Debridement Subcutaneous Subcutaneous Subcutaneous -Tissue Removed Subcutaneous Subcutaneous Subcutaneous -Post Debridement (cm) - Length 0.5 0.3 0.2 -Post Debridement (cm) - Width 0.5 0.3 0.2 -Post Debridement (cm) - Depth 0.5 0.6 0.8 -Total Square (Post) (cm) 0.25 0.09 0.04 -Area of Debridement (cm) - Length 0.5 0.3 0.2 -Area of Debridement (cm) - Width 0.5 0.3 0.2 -Total Square (Area) (cm) 0.25 0.09 0.04 -Tunneling No No No -Undermining/Tunneling No No No -Circular Undermining No No No -Wound/Ulcer Outcome Not Healed Not Healed Not Healed -Ulcer Cleansing Rinsed/ Rinsed/ Rinsed/ Irrigated with Irrigated with Irrigated with Saline Saline Saline -Foul Odor after Cleansing No No No -Bioengineered Tissue No No No -Bleeding Controlled with Pressure Pressure Pressure -Treatment Response Procedure Procedure Procedure Tolerated Well Tolerated Well Tolerated Well -Offloading No No -Debridement - Subq, 1st 20sq cm Yes Yes Yes Pain Scale: 0-10 Numeric Is Patient Pain Free? Yes Yes Yes WC - Nurse 3 - General Ulcer D/C NN Start: 12/13/21 08:26 Freq: Status: Active Protocol: Activity Type Activity Date Activity User E-Sign Co-Sign Detail Recorded Client Recorded Date Recorded By Document 12/13/21 08:50 KR [id number] 12/13/21 08:50 KR Document 12/20/21 08:27 AK [id number] 12/20/21 08:27 AK Document 12/20/21 08:37 [facility] [id number] 12/20/21 08:38 BMF Document 01/03/22 08:45 AK [id number] 01/03/22 08:46 AK 12/13/21 12/20/21 12/20/21 08:50 08:27 08:37 Wound Care Nurse 3 #1- LOWER ABDOMEN MIDLINE -Ulcer Cleansing Rinsed/ Rinsed/ Irrigated with Irrigated with Saline Saline -Foul Odor after Cleansing No -Primary Dressing Applied Fibracol Plus NonAdherent Fibracol Plus 4x4,Mepilex Contact Layer, 4x4,Mepilex Border Promogran Border -Primary Dressing Covered/Secured with Dry Gauze, Secured with Tape -Fibracol Plus 4x4 1 1 -Mepilex Border 1 1 -Promogran 1 Treatment Response Procedure Tolerated Well Pain Scale: 0-10 Numeric Is Patient Pain Free? Yes Yes Yes WC - Visit Discharge Discharge Condition Stable Stable Stable Ambulatory Status Ambulatory Ambulatory Ambulatory Transportation Private Auto Private Auto Private Auto Medication Reconcilliation completed & Yes provided to patient/care provider Clinical Summary of Care Provided Yes 01/03/22 08:45 Wound Care Nurse 3 #1- LOWER ABDOMEN MIDLINE -Ulcer Cleansing -Foul Odor after Cleansing -Primary Dressing Applied -Primary Dressing Covered/Secured with -Fibracol Plus 4x4 -Mepilex Border -Promogran Treatment Response Pain Scale: 0-10 Numeric Is Patient Pain Free? Yes WC - Visit Discharge Discharge Condition Stable Ambulatory Status Ambulatory Transportation Private Auto Medication Reconcilliation completed & Yes provided to patient/care provider Clinical Summary of Care Provided Yes Assessment/Plan Assessment/Plan (1) Nonhealing surgical wound: CODE(S): T81.89XA - Other complications of procedures, not elsewhere classified, initial encounter QUALIFIERS: Encounter type: initial encounter Qualified Code(s): T81.89XA - Other complications of procedures, not elsewhere classified, initial encounter PLAN: Continue packing with Fibracol every day moisten and cover with gauze and tape Discontinue home health care Follow-up in 2 week (2) Renal insufficiency: CODE(S): N28.9 - Disorder of kidney and ureter, unspecified
== END 2022-01-09 23:59 | disposition home or self-care (01) ==
LOC: WC 08:30
PROVIDERS: PCP Family Medicine; Visit Provider Nurse Practitioner
DX: T81.89XA Other complications of procedures, not elsewhere classified, initial encounter (principal); S31.109A Unspecified open wound of abdominal wall, unspecified quadrant without penetration into peritoneal cavity, initial encounter; N28.9 Disorder of kidney and ureter, unspecified; Z85.831 Personal history of malignant neoplasm of soft tissue; Z90.5 Acquired absence of kidney; Z79.01 Long term (current) use of anticoagulants; Z79.899 Other long term (current) drug therapy
CPT/HCPCS: 11042

== ENCOUNTER 2022-01-17 08:30 | Outpatient (RCR) | payer MEDICARE, OTHER, SELFPAY ==
[2022-01-10 00:50] VITALS: BP 176/88; PULSE 93; RESP 16; TEMP 36.4; BMI 33.9
[2022-01-17 08:26] VITALS: BP 170/90; PULSE 92; TEMP 36.1; BMI 33.9
--- NOTE | 2022-01-17 09:48 | PN.PCM_ITS ---
History of Present Illness Date of Service: 01/17/22 Chief Complaint: Follow-up on surgical wound lower abdomen Follow-up on surgical wound lower Midabdomen History of Wound: 66-year-old white male, had a colonoscopy done in late summer was found to have low pulse ox while performing the procedure. 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 Patient was sent to [facility] and basically told there was nothing they could do for him and that he was pretty well going to . His daughters were upset and wanted to get a second opinion and call the [facility]. Patient was transferred down to [facility] and they perform surgery on him and remove the sarcoma in its totality and basically the patient does not need chemo. 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 He was admitted for with chest tubes and had been there for quite a while he still has this nonhealing wound in the lower abdomen that he states was a drain from his original surgery. He then went to [place] [facility] and they only want to see him every 1 to 3 months and told him just to pack it with new gauze. They did not like that so they decided to change facilities and that is how he was sent to us. Progress of Wound: Abdominal wound is resolved patient will be discharged from the wound center Subjective Subjective Patient explained that they are going to start radiation treatments for 6 weeks and major surgery afterwards. Patient and family have chosen not for treatment and that he probably has another year to live. Objective Data Objective Data Lower abdomen is well-healed no sign of infection patient will be discharged from the wound center Vital Signs: Vital Signs Temp Pulse Resp BP 97.0 F L 92 16 170/90 H 01/17/22 08:26 01/17/22 08:26 01/10/22 00:50 01/17/22 08:26 Weight: 223 lb Body Mass Index (BMI) 33.9 Physical Exam Const oriented x3 General Appearance: cooperative Exam Limitations: no limitations HEENT normocephalic Head and Scalp: normal to inspection Face and Sinus: normal facial exam Nose: external nose normal General Ear: hearing grossly impaired External Ear: external ears normal Mouth: oral and palatal mucosa normal Eyes PERRL General Eye: normal appearance of both eyes Neck full ROM General: normal visual inspection Resp normal respiratory effort Effort and Inspection: able to speak in complete sentences Auscultation: clear to auscultation bilaterally Cardio regular rate and regular rhythm Palpation: normal PMI Rate: regular rate Rhythm: regular rhythm GI Auscultation: normoactive bowel sounds Palpation: soft and no hepatosplenomegaly external exam normal Back/Spine Cervical Spine: cervical ROM normal Thoracic Spine / Upper Back: normal to inspection Lumbar Spine / Lower Back: normal to inspection Extremity normal to inspection General Extremity: normal exam except as noted Skin no rashes or lesions noted Neuro oriented x3 Psych Appearance: grossly normal Speech: normal speech Thought Content: normal thought content Judgement: judgement good Debridement Note Debridement Note No debridement was completed: No debridement was completed today Post-Debridement Measurements and Additional Note: Post-Debridement Measurements/Treatment - Nurse 1 - General Ulcer Assessment Start: 01/17/22 08:25 Freq: Status: Active Protocol: WC.LOWEXT Activity Type Activity Date Activity User E-Sign Co-Sign Detail Recorded Client Recorded Date Recorded By Document 01/17/22 08:26 LV [id number] 01/17/22 08:29 LV 01/17/22 08:26 - Today's Visit Information Type of service 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 Any new allergies or adverse reactions No Had a fall/change in ADL's that may No increase risk of falls Signs or symptoms of abuse and/or No neglect since last visit Have you been in the hospital since your No last visit? Has dressing in place as prescribed Yes Has compression in place as prescribed N/A Has offloadiing in place as prescribed N/A Experienced any changes in pain level or No management Left Footwear Regular Shoe Right Footwear Regular Shoe Pain Scale: 0-10 Numeric Is Patient Pain Free? Yes WC - Nurse 1 - General Ulcer Measurement Start: 01/17/22 08:25 Freq: Status: Active Protocol: Activity Type Activity Date Activity User E-Sign Co-Sign Detail Recorded Client Recorded Date Recorded By Document 01/17/22 08:26 KR [id number] 01/17/22 08:29 LV 01/17/22 08:26 Wound Center Nurse 1 #1- LOWER ABDOMEN MIDLINE -Current Size (cm) - Length 0.2 -Current Size (cm) - Width 0.2 -Current Size (cm) - Depth 0.9 -Total Square Cm 0.04 -Exudate Amt Medium -Exudate Type Serosanguineous -Wound Margin Distinct, Outline Attached -Granulation Amt Medium (34-66%) -Granulation Quality [place] -Necrosis Amt Medium (34-66%) -Necrotic Tissue Type Adherent Slough -Texture (Anaid-wound Skin Appearance) Assessed, Scarring -Moisture (Anaid-wound Skin Appearance) No Abnormality, Assessed -Color (Anaid-wound Skin Appearance) No Abnormality, Assessed -Temperature (Anaid-wound Skin No Abnormality Appearance) (Pt Warm) -Tenderness on Palpation (Anaid-wound No Skin Appearance) -Ulcer Cleansing Rinsed/ Irrigated with Saline -Foul Odor after Cleansing No -Anesthetic Used 5% Lidocaine Gel WC - Nurse 2 - General Ulcer CM Notes Start: 01/17/22 08:25 Freq: Status: Active Protocol: Activity Type Activity Date Activity User E-Sign Co-Sign Detail Recorded Client Recorded Date Recorded By Document 01/17/22 08:49 MW [id number] 01/17/22 08:51 MW 01/17/22 08:49 Wound Center Nurse 2 -Time 08:50 -Correct Patient Yes -Correct Side, Site, Position Yes -Correct Procedure Yes -Procedure Performed No -Post Debridement (cm) - Length 0 -Post Debridement (cm) - Width 0 -Post Debridement (cm) - Depth 0 -Total Square (Post) (cm) 0 -Wound/Ulcer Outcome Healed- Epithelialized Pain Scale: 0-10 Numeric Is Patient Pain Free? Yes MICHELLE - Nurse 3 - General Ulcer D/C NN Start: 01/17/22 08:25 Freq: Status: Active Protocol: Activity Type Activity Date Activity User E-Sign Co-Sign Detail Recorded Client Recorded Date Recorded By Document 01/17/22 08:51 [id number] 01/17/22 08:52 01/17/22 08:51 Wound Care Nurse 3 #1- LOWER ABDOMEN MIDLINE -Primary Dressing Applied Mepilex Border -Mepilex Border 1 Treatment Response Procedure Tolerated Well Pain Scale: 0-10 Numeric Is Patient Pain Free? Yes Teaching: Wound Center Discharge Instructions -Person Taught Patient -Teaching Method Discussion -Response to teaching Verbalize understanding WC - Visit Discharge Discharge Condition Stable Ambulatory Status Ambulatory Transportation Private Auto Accompanied by self Medication Reconcilliation completed & No provided to patient/care provider Clinical Summary of Care Provided Yes Notes: healed, discharged from clinic Assessment/Plan Assessment/Plan (1) Nonhealing surgical wound: CODE(S): T81.89XA - Other complications of procedures, not elsewhere classified, initial encounter QUALIFIERS: Encounter type: initial encounter Qualified Code(s): T81.89XA - Other complications of procedures, not elsewhere classified, initial encounter PLAN: Discharge from the wound center follow-up as needed (2) Renal insufficiency: CODE(S): N28.9 - Disorder of kidney and ureter, unspecified
== END 2022-01-19 09:53 | disposition home or self-care (01) ==
LOC: WC 08:30
PROVIDERS: PCP Family Medicine; Visit Provider Nurse Practitioner
DX: Z09 Encounter for follow-up examination after completed treatment for conditions other than malignant neoplasm (principal); Z79.01 Long term (current) use of anticoagulants; Z79.52 Long term (current) use of systemic steroids; Z79.899 Other long term (current) drug therapy; Z85.831 Personal history of malignant neoplasm of soft tissue; N28.9 Disorder of kidney and ureter, unspecified
CPT/HCPCS: 99212; G0463